=== PATIENT | male | born 1985 | race Caucasian/White ===

== ENCOUNTER 2017-04-22 14:08 | Emergency (ER) | payer MEDICAID, SELFPAY ==
[2017-04-22 14:09] VITALS: BP 133/84; PULSE 100; RESP 16; TEMP 36.6; O2SAT 99; BMI 23.5
--- NOTE | 2017-04-22 14:16 | CT_ITS ---
STUDY: CT ABDOMEN AND PELVIS WITHOUT CONTRAST REASON FOR EXAM: Male, 32 years old. Abdominal pain. RADIATION DOSAGE (If Supplied By Facility): CTDIvol = ( 6.25 ) mGy, DLP = ( 296.85 ) mGycm TECHNIQUE: Transaxial images were obtained from the dome of the diaphragm to the symphysis pubis without oral contrast, and without intravenous contrast. Sagittal and coronal images were reconstructed. Individualized dose optimization techniques were used for this CT. COMPARISON: CT of the abdomen and pelvis dated August 19, 2016. FINDINGS: The visualized lung bases are unremarkable. The visualized portions of the heart are within normal limits. Normal liver. There is non-visualization of the gallbladder, which may be secondary to either contraction or a prior cholecystectomy. Normal spleen. Normal pancreas. Normal bilateral adrenal glands. Right kidney is smaller than left kidney with multifocal parenchymal loss possibly related to previous ischemia or infection. Normal left kidney. Normal visualized stomach. There is no evidence for dilated bowel, ascites or pneumoperitoneum. Small bowel has a grossly normal appearance. Normal colon. The appendix is visualized and appears normal. Normal abdominal aorta. Normal inferior vena cava. Normal retroperitoneum. Urinary bladder is very distended. Normal visualized prostate gland. Normal abdominal wall. Normal osseous structures. CT/Abdomen/Pelvis without Cont IMPRESSION: No CT evidence of acute intra-abdominal disease. Electronically Signed: Nicolasa Espinoza MD at 15:38 EST , Service support ,
[2017-04-22] MEDS: 0.9% Normal Saline 1,000 ML 125 ML IV (14:37)
[2017-04-22] MEDS: Ondansetron 4 MG/2 ML Vial IV (14:37)
[2017-04-22 14:40] LABS: Absolute Lymphocyte Count 2.59 X10^3/ul (0.83-4.51); Absolute Neutrophil Count 4.5 X10^3/uL (2.0-7.7); Basophil# 0.01 X10^3/uL; Basophil% 0.1 % (0-1); Eosinophils% 1.3 % (0-5); Hemoglobin 15.6 g/dl (13.0-16.5); Lymphocyte # 2.59 X10^3/ul (4.0); Lymphocyte % 34.1 % (19-41); Mean Corp Hgb Conc 35.5 g/gl (32-36); Mean Corpuscular Hgb 30.8 pg (27.0-32.0); Mean Platelet Vol. 9.4 fl (6.2-12.0); Monocyte# 0.39 X10^3/uL; Monocyte% 5.1 % (0-10); Neutrophil # 4.49 X10^3/uL (2.7-7.7); Neutrophil % 59.1 % (47-70); POSITIVE COUNT NO; POSITIVE DIFFERENTIAL NO; POSITIVE MORPHOLOGY NO; Platelet Count 232 K/mm3 (150-450); RBC Distribution Width CV 12.4 % (11.6-14.6); RBC Distribution Width SD 39.3 fl (35.1-43.9); Red Blood Count 5.06 M/mm3 (4.6-6.2); White Blood Count 7.6 K/mm3 (4.4-11.0)
[2017-04-22 14:45] LABS: AST(SGOT) 24 U/L (15-37); Alanine Aminotransfer ALT/SGPT 22 U/L (12-78); Albumin, Serum 4.1 g/dL (3.2-5.0); Alkaline Phosphatase 112 U/L (45-117); Anion Gap 6 (5-15); BUN 9 mg/dL (7-18); Bilirubin, Direct 0.13 mg/dL (0.00-0.30); Calcium,Total 8.9 mg/dL (8.5-10.1); Chloride 106 mmol/L (98-107); Creatinine, Serum 0.82 mg/dL (0.70-1.30); EST Glomerular Filtration Rate 117 mL/min (>60); Est Glom Filt Rate - Afr Amer 142 mL/min (>60); Estimated Creatinine Clearance 123.15 ml/min; Globulin 3.6 g/dL (2.2-4.2); Glucose 86 mg/dL (70-110); Lipase 97 U/L (73-393); Potassium 3.7 mmol/L (3.5-5.1); Protein, Total 7.7 g/dL (6.4-8.2); Sodium Level 140 mmol/L (136-145)
--- NOTE | 2017-04-22 14:57 | ED.DCSUM_ITS ---
- ER Visit Summary Date of Service: 04/22/17 Chief Complaint: [] Right upper quadrant pain for months History of Present Illness: The patient is a 32 M [] right upper quadrant pain for months he indicates that basically he has had pain in his right upper quadrant for some time, he had a cholecystectomy mid 2016 the abdominal pain persisted was slightly different he was seen for follow-up and was found to have what he describes as a hernia involving 1 of these cutaneous port site incisions, he was seen by Dr. Hutson, he was told he would require surgery, that surgery scheduled for this Sunday he is out of his pain medicines nothing is helping his pain he came to the emergency department. He indicates he has had no other exacerbation this is identical to what he has had in the past he did not injure his body he is eating and drinking his bowel bladder habits normal no fever no cough it is just the persistence of discomfort and lack of medications Physical Examination: [] He points directly to a focal area of his right upper quadrant I really do not feel a discrete hernia here but indicates he feels he has a small hernia involving 1 of his port sites there is no guarding or rebound some mild pain to palpation in his head chest exam unremarkable the abdomen is soft again no rebound or guarding upper lower extremities unremarkable neurologically awake alert moving all 4 Test Results: [] Emergency Department Course and Treatment: [] Given all of the above labs CT pain management CBC chemistry labs unremarkable, CT abdomen negative. Discussed the case Dr. Hutson his surgeon she will see him as scheduled we agree he will be given just a few tramadol No. 4 to use as needed and I also cautioned him that his pain management will likely not include narcotics postop and he understands Treatment Plan: [] Disposition: [] Right upper quadrant pain stable home Impression: [] Right upper quadrant pain stable This note was generated with [employer] dictation software. It may contain incorrect words, spelling, and punctuation that were not noted in review of the chart prior to signing ED Disposition - Plan for ED Patient: Chief Complaint: Abd Pain Referrals: Ugo Sim DO [Primary Care Provider] -
[2017-04-22 15:50] LABS: Bacteria 0 SEEN /hpf (None Seen); Color, Urine Yellow (Yellow); Glucose, Dipstick Normal (Normal); Ketone-Dipstick Negative (Negative); Leukocyte Esterase-Dipstick Negative /ul (Negative); Mucous, Urine 0 SEEN /hpf (<or=2+); Nitrite-Dipstick Negative (Negative); Occult Blood-Urine Negative /ul (Negative); Protein-Dipstick Negative (Negative); Red Blood Cells-Urine 0 SEEN /hpf (0-5); Specific Gravity, Urine 1.005 (1.002-1.030); Squamous Epithelial Cells - UA 0 SEEN /hpf (0-5); Urine Bilirubin Dipstick Negative (Negative); Urine Clarity Clear (Clear); Urine Urobilinogen Normal (Normal); Urine pH 6.5 (5.0 - 8.0); White Blood Cells 0 SEEN /hpf (0-5)
--- NOTE | 2017-04-22 16:54 | ED.DEP ---
ED Disposition - Plan for ED Patient: Chief Complaint: Abd Pain Instructions: ED Abdominal Pain Unkn Cause Prescriptions: TraMADol [Ultram] 50 mg PO QHS #5 tab Referrals: Ugo Sim DO [Primary Care Provider] -
[2017-04-22 17:15] VITALS: BP 104/62; PULSE 83; RESP 16; O2SAT 98
== END 2017-04-22 17:16 | disposition home or self-care (01) ==
LOC: ED 14:28
PROVIDERS: Emergency Provider Emergency Medicine; Family Provider Student in an Organized Health Care Education/Training Program; PCP Student in an Organized Health Care Education/Training Program
DX: R10.11 Right upper quadrant pain (principal); Z90.49 Acquired absence of other specified parts of digestive tract
CPT/HCPCS: 74176; 80048; 80076; 81001; 83690; 85025; 96361; 96374; 96375; 99283; J7050; A4216; J2405

== ENCOUNTER 2017-05-31 21:11 | Emergency (ER) | payer MEDICAID, SELFPAY ==
[2017-05-31 21:12] VITALS: BP 140/90; PULSE 97; RESP 20; TEMP 36.5; O2SAT 100; BMI 26.3
[2017-05-31 21:24] VITALS: O2SAT 99
--- NOTE | 2017-05-31 21:33 | EKG12_ITS ---
Test Reason : SOB Blood Pressure : / mmHG Vent. Rate : 086 BPM Atrial Rate : 086 BPM P-R Int : 188 ms QRS Dur : 098 ms QT Int : 350 ms P-R-T Axes : 064 072 056 degrees QTc Int : 418 ms Normal sinus rhythm Normal ECG Confirmed by KANU HILLMAN ([id number]), social media editor ISAMAR PIERRE ([id number]) on 06/04/2017 1:43:24 PM Referred By: SAMANTHA/MIKAL Confirmed By:KANU HILLMAN
--- NOTE | 2017-05-31 21:35 | RAD_ITS ---
STUDY: X-RAY CHEST REASON FOR EXAM: Male, 32 years old. Chest pain. TECHNIQUE: Single AP portable view of the chest. COMPARISON: 28 September 2016 FINDINGS: The lungs are clear and expanded. There is no demonstrated pleural abnormality. Normal size heart. Normal mediastinum and christa. Normal visualized pulmonary arteries. Normal visualized aortic arch and descending thoracic aorta. Normal visualized thoracic spine. Normal visualized ribs, clavicles, and shoulders. There is no demonstrated abnormality of the visualized soft tissue structures of the upper abdomen. RAD/Chest 1 View (Portable) IMPRESSION: No evidence of acute cardiopulmonary process. Electronically Signed: Toney Mcdaniel DO at 22:01 EST , Service support ,
[2017-05-31 21:45] VITALS: PULSE 87; RESP 11
[2017-05-31] MEDS: Ipratropium/Albuterol Sulfate 3 ML AMPUL.NEB INHALATION (21:45)
[2017-05-31] MEDS: Aspirin 81 MG TAB.CHEW 324 MG PO (21:53)
[2017-05-31] MEDS: 0.9% Normal Saline 1,000 ML 150 ML IV (21:57)
[2017-05-31] MEDS: Ondansetron 4 MG/2 ML Vial IV (21:58)
[2017-05-31 22:01] VITALS: BP 132/87; PULSE 91; RESP 17; O2SAT 98
[2017-05-31 22:28] LABS: Absolute Lymphocyte Count 3.15 X10^3/ul (0.83-4.51); Absolute Neutrophil Count 3.9 X10^3/uL (2.0-7.7); Basophil# 0.02 X10^3/uL; Basophil% 0.3 % (0-1); Eosinophil# 0.15 X10^3/uL; Hemoglobin 14.4 g/dl (13.0-16.5); Lymphocyte # 3.15 X10^3/ul (4.0); Mean Corp Hgb Conc 34.3 g/gl (32-36); Mean Corpuscular Hgb 30.1 pg (27.0-32.0); Mean Corpuscular Volume 87.7 fL (80-94); Mean Platelet Vol. 9.4 fl (6.2-12.0); Monocyte# 0.48 X10^3/uL; Monocyte% 6.2 % (0-10); Neutrophil # 3.88 X10^3/uL (2.7-7.7); Neutrophil % 50.4 % (47-70); POSITIVE COUNT NO; POSITIVE DIFFERENTIAL NO; POSITIVE MORPHOLOGY NO; Platelet Count 238 K/mm3 (150-450); RBC Distribution Width CV 12.4 % (11.6-14.6); RBC Distribution Width SD 39.5 fl (35.1-43.9); Red Blood Count 4.79 M/mm3 (4.6-6.2); White Blood Count 7.7 K/mm3 (4.4-11.0)
[2017-05-31 22:36] LABS: BUN 12 mg/dL (7-18); Creatinine, Serum 0.82 mg/dL (0.70-1.30); Estimated Creatinine Clearance 131.72 ml/min; Glucose 96 mg/dL (74-106)
[2017-05-31 22:37] LABS: Anion Gap 6 (5-15); BUN/Creat Ratio 14.6 RATIO (10-20); Calcium,Total 8.7 mg/dL (8.5-10.1); Chloride 105 mmol/L (98-107); D-Dimer Quantitative (DVT/PE) 0.29 FEU/ug/m (0.27-0.49); EST Glomerular Filtration Rate 116 mL/min (>60); Est Glom Filt Rate - Afr Amer 141 mL/min (>60); Potassium 3.3 mmol/L (3.5-5.1); Sodium Level 140 mmol/L (136-145)
--- NOTE | 2017-05-31 23:06 | ED.VISSUMM ---
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 his friend who is with him is concerned he may have turned suddenly and suffered some type of chest trauma the patient is not sure if that is what caused the symptoms, he does smoke he denies any other risk factors such as high cholesterol diabetes family history, the pain is a sharp stabbing pain that comes and goes he has no history of COPD asthma DVT or PE he points to the mid sternum as the focus of his pain No past history and is on no meds Physical Examination: [] His vital signs are normal his pulse ox 100% on room air speaking full sentences his HEENT neck exam are normal his lungs are clear heart tones are normal the chest wall is not obviously tender he has full range of motion of his upper extremities symmetric pulses lungs are clear heart tones are normal again abdomen soft nontender upper lower extreme is normal without cyanosis clubbing or edema Test Results: [] Emergency Department Course and Treatment: [] Went comprehensive evaluation his EKG shows a sinus rhythm his labs including CBC chemistry d-dimer troponin chest x-ray are all unremarkable, on reevaluation is feeling much better I explained to him the exact etiology is unclear he is comfortable discharge home he understands these outpatient follow-up and will follow up with physician tomorrow return for change in symptoms Treatment Plan: [] Disposition: [] Home stable Impression: [] Stabbing chest pain improved This note was generated with [employer] dictation software. It may contain incorrect words, spelling, and punctuation that were not noted in review of the chart prior to signing ED Disposition - Plan for ED Patient: Chief Complaint: Shortness of Breath Referrals: Ugo Sim DO [Primary Care Provider] -
--- NOTE | 2017-05-31 23:09 | ED.DEP ---
ED Disposition - Plan for ED Patient: Chief Complaint: Shortness of Breath Instructions: ED Chest Pain Atypical Unkn Cause Prescriptions: Naproxen [Naprosyn] 500 mg PO BID PRN #20 tab Referrals: Ugo Sim DO [Primary Care Provider] -
[2017-05-31 23:21] VITALS: BP 133/93; PULSE 92; RESP 14; O2SAT 98
--- NOTE | 2017-05-31 23:21 | ED.RN ---
THIS RN EDUCATED PT ON WRITTEN AND VERBAL DISCHARGE INSTRUCTIONS AND HOME GOING PRESCRIPTIONS. PT VERBALIZES UNDERSTANDING. PT EDUCATED NOT TO DRIVE AFTER HAVING NARCOTIC MEDICATION, AND TO RETURN TO THE ED FOR ANY NEW OR WORSENED SX. PT IV D/C AND COVERED WITH 2X2 GAUZE DRESSING. MINIMAL BLEEDING NOTED. PT AMBULATORY HOME WITH FRIEND.
== END 2017-05-31 23:26 | disposition home or self-care (01) ==
LOC: ED 21:38
PROVIDERS: Emergency Provider Emergency Medicine; Family Provider Student in an Organized Health Care Education/Training Program; PCP Student in an Organized Health Care Education/Training Program
DX: R07.9 Chest pain, unspecified (principal); F17.200 Nicotine dependence, unspecified, uncomplicated
CPT/HCPCS: 71045; 80048; 84484; 85025; 85379; 93005; 94640; 96361; 96374; 96375; 99285; J7030; A4216; J2405

== ENCOUNTER 2017-08-09 22:57 | Emergency (ER) | payer SELFPAY ==
[2017-08-09 22:58] VITALS: BP 176/110; PULSE 99; RESP 20; TEMP 36.4; O2SAT 100; BMI 25.8
[2017-08-09] MEDS: Morphine 4 MG/ML Syringe IV (23:40)
[2017-08-09] MEDS: 0.9% Normal Saline 1,000 ML 125 ML IV (23:40)
[2017-08-09] MEDS: Ondansetron 4 MG/2 ML Vial IV (23:40)
[2017-08-09 23:47] LABS: Absolute Lymphocyte Count 3.14 X10^3/ul (0.83-4.51); Absolute Neutrophil Count 3.8 X10^3/uL (2.0-7.7); Basophil# 0.03 X10^3/uL; Basophil% 0.4 % (0-1); Eosinophil# 0.15 X10^3/uL; Hematocrit 41.1 % (40-54); Hemoglobin 14.8 g/dl (13.0-16.5); Lymphocyte # 3.14 X10^3/ul (4.0); Lymphocyte % 41.1 % (19-41); Mean Corpuscular Hgb 31.3 pg (27.0-32.0); Mean Corpuscular Volume 86.9 fL (80-94); Mean Platelet Vol. 9.7 fl (6.2-12.0); Monocyte# 0.49 X10^3/uL; Monocyte% 6.4 % (0-10); Neutrophil # 3.81 X10^3/uL (2.7-7.7); Neutrophil % 49.8 % (47-70); Platelet Count 271 K/mm3 (150-450); RBC Distribution Width CV 12.6 % (11.6-14.6); RBC Distribution Width SD 39.1 fl (35.1-43.9); Red Blood Count 4.73 M/mm3 (4.6-6.2); White Blood Count 7.6 K/mm3 (4.4-11.0)
[2017-08-09 23:50] LABS: POSITIVE COUNT NO; POSITIVE DIFFERENTIAL NO; POSITIVE MORPHOLOGY NO
[2017-08-10] LABS: Anion Gap 9 (5-15); BUN 18 mg/dL (7-18); BUN/Creat Ratio 18.8 RATIO (10-20); Calcium,Total 8.8 mg/dL (8.5-10.1); Chloride 104 mmol/L (98-107); Creatinine, Serum 0.96 mg/dL (0.70-1.30); EST Glomerular Filtration Rate 98 mL/min (>60); Est Glom Filt Rate - Afr Amer 119 mL/min (>60); Estimated Creatinine Clearance 112.51 ml/min; Glucose 104 mg/dL (74-106); Potassium 4.1 mmol/L (3.5-5.1); Sodium Level 142 mmol/L (136-145)
[2017-08-10 01:03] VITALS: RESP 18
--- NOTE | 2017-08-10 01:59 | ED.DCSUM_ITS ---
- ER Visit Summary Date of Service: 08/10/17 Chief Complaint: [Abdominal pain History of Present Illness: The patient is a 32 M [presents to the emergency department with abdominal pain for the last 3 days. Patient states initially the pain was more mild and mid abdomen just above his incision from prior hernia repair about 3 months ago. Patient states that while at work today he moved something the wrong way and is had increased discomfort since that time. Patient denies any fever. Patient denies any nausea or vomiting. Patient denies any diarrhea. Currently patient rates his pain a 6 or 7 out of 10. Patient denies urinary symptoms.] Physical Examination: [HEENT-PERRLA, EOMI. Cranial nerves II through XII grossly intact. TMs clear. Mucous membranes moist. No adenopathy. Cardiovascular-regular rate and rhythm without murmur or ectopy Lungs-clear to auscultation, chest wall stable without crepitus or subcu emphysema Abdomen-normoactive bowel sounds, soft. Patient has a 2.5 cm incision above his umbilicus that is tender to palpation and patient also some tenderness just superior to the incision. No masses palpated. There is no rebound, rigidity, or perineal signs. Extremities-intact ?4, normal range of motion, normal pulses, atraumatic] Test Results: [CBC with differential was normal. Chemistries were normal. Lactate was normal at 1.0. CT scan of the abdomen pelvis with p.o. contrast showed nothing acute only some constipation. No bowel obstruction and no hernias noted] Emergency Department Course and Treatment: [Patient initially was medicated with morphine and Zofran and he felt improved after treatment. Patient was resting comfortably on repeat examination.] Treatment Plan: [Patient advised to follow-up with his surgeon Dr. Forbes weighing within the next 3-5 days.] I suspect patient may have had an abdominal wall strain. Disposition: [Discharged home in stable condition] Impression: [Abdominal pain-etiology uncertain] This note was generated with [employer] dictation software. It may contain incorrect words, spelling, and punctuation that were not noted in review of the chart prior to signing ED Disposition - Plan for ED Patient: Chief Complaint: Abd Pain Referrals: Ugo Sim DO [Primary Care Provider] -
--- NOTE | 2017-08-10 01:59 | ED.DEP ---
ED Disposition - Plan for ED Patient: Chief Complaint: Abd Pain Instructions: ED Abdominal Pain Unkn Cause Referrals: Ugo Sim DO [Primary Care Provider] - Leidy Hutson MD [STAFF PHYSICIAN] - 3-5 Days
[2017-08-10 02:04] VITALS: BP 120/73; PULSE 76; RESP 16; O2SAT 97
--- NOTE | 2017-08-10 23:11 | CT_ITS ---
STUDY: CT ABDOMEN AND PELVIS WITHOUT CONTRAST REASON FOR EXAM: Male, 32 years old. Abdominal pain RADIATION DOSAGE (If Supplied By Facility): CTDIvol = ( 6.67 ) mGy, DLP = ( 343.23 ) mGycm TECHNIQUE: Transaxial images were obtained from the dome of the diaphragm to the symphysis pubis with oral contrast, and without intravenous contrast. Sagittal and coronal images were reconstructed. Individualized dose optimization techniques were used for this CT. COMPARISON: None. FINDINGS: Mild bibasilar dependent atelectasis versus scar formation. The visualized portions of the heart are within normal limits. Normal liver. Gallbladder is surgically absent. No biliary duct dilatation. Normal spleen. Normal pancreas. Normal bilateral adrenal glands. Normal right kidney. Normal left kidney. Ureterocele noted on the right without hydroureter. Normal left ureter. Normal visualized stomach. Normal small intestine. Small amount of stool throughout the colon. No colonic wall thickening The appendix is visualized and appears normal. Normal abdominal aorta. Normal inferior vena cava. Normal retroperitoneum. Normal urinary bladder. No free pelvic fluid. Normal abdominal wall. Normal osseous structures. CT/Abdomen/Pel W ORAL Cont Only IMPRESSION: 1. No evidence of an acute intra-abdominal abnormality 2. Right sided ureterocele without evidence of hydroureter. 3. Mild constipation. Electronically Signed: Fred Hay MD at 1:43 EDT Tel , Service support ,
== END 2017-08-10 02:05 | disposition home or self-care (01) ==
LOC: ED 23:39
PROVIDERS: Emergency Provider Emergency Medicine; Family Provider Student in an Organized Health Care Education/Training Program; PCP Student in an Organized Health Care Education/Training Program
DX: R10.9 Unspecified abdominal pain (principal); K59.00 Constipation, unspecified; Z72.0 Tobacco use
CPT/HCPCS: 74176; 80048; 83605; 85025; 96361; 96374; 96375; 99283; J7030; J2405

== ENCOUNTER 2017-09-02 16:25 | Emergency (ER) | payer SELFPAY ==
--- NOTE | 2017-09-02 16:25 | DT_ITS ---
This patient was seen during an EMR downtime August 27, 2017 - September 03, 2017. This patient may have a combination of paper and electronic documentation or all paper documentation. All documentation is viewable within the e-chart portion of [employer] for each patient visit.
--- NOTE | 2017-09-02 18:00 | CT_ITS ---
STUDY: CT ABDOMEN AND PELVIS WITHOUT CONTRAST REASON FOR EXAM: Male, 32 years old. Right groin pain RADIATION DOSAGE (If Supplied By Facility): CTDIvol = ( 6.72 ) mGy, DLP = ( 325.76 ) mGycm TECHNIQUE: Transaxial images were obtained from the dome of the diaphragm to the symphysis pubis without oral contrast, and without intravenous contrast. Sagittal and coronal images were reconstructed. Individualized dose optimization techniques were used for this CT. COMPARISON: None. FINDINGS: The visualized lung bases are unremarkable. The visualized portions of the heart are within normal limits. Normal liver. There is non-visualization of the gallbladder, which may be secondary to either contraction or a prior cholecystectomy. Normal spleen. Normal pancreas. Normal bilateral adrenal glands. Normal right kidney. Normal left kidney. Normal visualized stomach. Normal small intestine. Normal colon. The appendix is visualized and appears normal. Normal abdominal aorta. Normal inferior vena cava. Normal retroperitoneum. There appears to be a 2.2 cm diverticulum of the right posterior aspect of the bladder. The prostate, seminal vesicles, and seminal vesicle angles appear normal. Normal abdominal wall. Normal osseous structures. There appears to be a right hydrocele. CT/Abdomen/Pelvis without Cont IMPRESSION: 1. There is no evidence of nephro or ureterolithiasis, hydronephrosis, or hydroureter. 2. There appears to be a right hydrocele. 3. There is a 2.2 cm diverticulum of the right posterior aspect of the bladder. 4. The gallbladder is not visualized. 5. If clinically indicated, ultrasound of the scrotum may be helpful for further evaluation. Electronically Signed: Maurice Fenton MD at 18:43 EDT , Service support ,
[2017-09-04 08:06] LABS: BUN 11 mg/dL (7-18); BUN/Creat Ratio 14.1 RATIO (10-20); Calcium,Total 8.6 mg/dL (8.5-10.1); Creatinine, Serum 0.78 mg/dL (0.70-1.30); EST Glomerular Filtration Rate 124 mL/min (>60); Est Glom Filt Rate - Afr Amer 150 mL/min (>60); Glucose 89 mg/dL (74-106); Sodium Level 140 mmol/L (136-145)
[2017-09-04 08:07] LABS: Anion Gap 7 (5-15); Chloride 107 mmol/L (98-107); Potassium 3.5 mmol/L (3.5-5.1)
[2017-09-04 10:53] LABS: White Blood Count 6.1 K/mm3 (4.4-11.0)
[2017-09-04 10:54] LABS: Absolute Lymphocyte Count 2.54 X10^3/ul (0.83-4.51); Absolute Neutrophil Count 3.2 X10^3/uL (2.0-7.7); Basophil# 0.01 X10^3/uL; Basophil% 0.2 % (0-1); Eosinophil# 0.05 X10^3/uL; Eosinophils% 0.8 % (0-5); Hematocrit 40.5 % (40-54); Hemoglobin 14.3 g/dl (13.0-16.5); Lymphocyte # 2.54 X10^3/ul (4.0); Lymphocyte % 41.4 % (19-41); Mean Corp Hgb Conc 35.3 g/gl (32-36); Mean Corpuscular Hgb 30.2 pg (27.0-32.0); Mean Corpuscular Volume 85.4 fL (80-94); Mean Platelet Vol. 9.2 fl (6.2-12.0); Monocyte# 0.31 X10^3/uL; Neutrophil # 3.23 X10^3/uL (2.7-7.7); Neutrophil % 52.6 % (47-70); POSITIVE COUNT NO; POSITIVE DIFFERENTIAL NO; POSITIVE MORPHOLOGY NO; Platelet Count 223 K/mm3 (150-450); RBC Distribution Width CV 12.5 % (11.6-14.6); RBC Distribution Width SD 39.1 fl (35.1-43.9); Red Blood Count 4.74 M/mm3 (4.6-6.2)
[2017-09-04 11:54] LABS: Bacteria 0 SEEN /hpf (None Seen); Mucous, Urine 0 SEEN /hpf (<or=2+); Red Blood Cells-Urine 0 SEEN /hpf (0-5)
[2017-09-04 12:31] LABS: Color, Urine Yellow (Yellow); Glucose, Dipstick NEGATIVE (Normal); Ketone-Dipstick 5 mg/dl (Negative); Leukocyte Esterase-Dipstick 25 /ul (Negative); Nitrite-Dipstick Negative (Negative); Occult Blood-Urine Negative /ul (Negative); Protein-Dipstick Negative (Negative); Specific Gravity, Urine 1.015 (1.002-1.030); Squamous Epithelial Cells - UA 0-5 SEEN /hpf (0-5); Urine Bilirubin Dipstick Negative (Negative); Urine Clarity Clear (Clear); Urine Urobilinogen Normal (Normal); White Blood Cells 0-5 SEEN /hpf (0-5)
== END 2017-09-02 20:05 | disposition home or self-care (01) ==
LOC: ED 09-03 08:27
PROVIDERS: Emergency Provider Emergency Medicine; Family Provider Student in an Organized Health Care Education/Training Program; PCP Student in an Organized Health Care Education/Training Program
DX: R10.31 Right lower quadrant pain (principal); K52.9 Noninfective gastroenteritis and colitis, unspecified; N43.3 Hydrocele, unspecified; N32.3 Diverticulum of bladder; Z90.49 Acquired absence of other specified parts of digestive tract; F17.200 Nicotine dependence, unspecified, uncomplicated
CPT/HCPCS: 74176; 80048; 81001; 85025; 96361; 96374; 96375; 99284; J7030; P9612; A4216; J2405

== ENCOUNTER 2017-12-10 21:05 | Emergency (ER) | payer OTHER, SELFPAY ==
[2017-12-10 21:07] VITALS: BP 118/74; PULSE 92; RESP 18; TEMP 36.9; O2SAT 97; BMI 23.3
--- NOTE | 2017-12-10 21:41 | RAD_ITS ---
STUDY: X-RAY CHEST REASON FOR EXAM: Male, 32 years old. Cough. TECHNIQUE: PA and lateral views of the chest. COMPARISON: May 31, 2017 FINDINGS: The lungs remain hyperinflated. There is no new focal consolidation. Normal size heart. Normal mediastinum and christa. Normal visualized pulmonary arteries. Normal visualized aortic arch and descending thoracic aorta. Normal visualized thoracic spine. Normal visualized ribs, clavicles, and shoulders. There is no demonstrated abnormality of the visualized soft tissue structures of the upper abdomen. RAD/Chest PA and Lateral IMPRESSION: Hyperinflated lungs may reflect underlying COPD. Electronically Signed: Danna Beasley MD at 22:50 EDT Tel , Service support ,
[2017-12-10] MEDS: Naproxen 500 MG Tablet PO (22:11)
[2017-12-10] MEDS: Ondansetron ODT 4 MG Tablet PO (22:12)
--- NOTE | 2017-12-10 23:06 | ED.VISSUMM ---
- ER Visit Summary Date of Service: 12/10/17 Chief Complaint: Cough History of Present Illness: The patient is a [address] Sim. He reports he has a cough began 2 days ago. Is productive yellow sputum without blood. He has had subjective fever, chills, and cold sweats. He got sinus congestion. He denies a sore throat. He reports that he is mildly short of breath. He denies wheezing. He reports that he does kind of have a headache. Physical Examination: Vitals: Stable. Afebrile. General: Well-nourished and well-developed. Head: Normocephalic atraumatic. HEENT: Posterior oral pharyngeal erythema. No tonsillar exudate or enlargement. Neck: Supple, no lymphadenopathy. No JVD. Nontender. Cardiovascular: Regular rate and rhythm. No murmurs. Respiratory: No respiratory distress. Clear to auscultation bilaterally. Abdominal: Soft, nontender, nondistended, normal bowel sounds. No guarding, rebound, or peritoneal signs. Back: Nontender. Extremities: Nontender, no edema. Skin: Normal color, no rash. Neurologic: Alert and oriented ?3. Cranial nerves II through XII are intact. Normal strength and sensation. Psych: Normal affect. Test Results: Chest x-ray shows chronic changes. Emergency Department Course and Treatment: Patient was treated Zofran and naproxen. He is resting comfortably. Treatment Plan: Patient be discharged with symptomatic care. Push fluids. Alternate Tylenol and ibuprofen. Follow-up Dr. Sim in 1 week if not improving. Return to the emergency department for any worsening symptoms. Disposition: To home in improved and stable condition. Impression: 1. URI. This note was generated with [email or web address] dictation software. It may contain incorrect words, spelling, and punctuation that were not noted in review of the chart prior to signing ED Disposition - Plan for ED Patient: Disposition: Home or Assisted Living Chief Complaint: Cold Sx Instructions: ED Upper Resp Infec No Abx Tx Referrals: Ugo Sim DO [Primary Care Provider] - 1 Week if not improving
[2017-12-10 23:16] VITALS: BP 110/60; PULSE 90; RESP 18
== END 2017-12-10 23:17 | disposition home or self-care (01) ==
PROVIDERS: Emergency Provider Emergency Medicine; Family Provider Student in an Organized Health Care Education/Training Program; PCP Student in an Organized Health Care Education/Training Program
DX: J06.9 Acute upper respiratory infection, unspecified (principal); R11.0 Nausea; R06.02 Shortness of breath; Z72.0 Tobacco use; Z90.49 Acquired absence of other specified parts of digestive tract
CPT/HCPCS: 71046; 99283

== ENCOUNTER 2018-04-03 06:57 | Emergency (ER) | payer OTHER, SELFPAY ==
[2018-04-03 06:59] VITALS: BP 137/82; PULSE 117; RESP 22; TEMP 36.4; O2SAT 98; BMI 22.4
--- NOTE | 2018-04-03 07:23 | CT_ITS ---
STUDY: CT ABDOMEN AND PELVIS WITH CONTRAST REASON FOR EXAM: Male, 33 years old. Mid abdominal pain. RADIATION DOSAGE (If Supplied By Facility): CTDIvol = ( 7.47 ) mGy, DLP = ( 432.24 ) mGycm TECHNIQUE: Transaxial images were obtained from the dome of the diaphragm to the symphysis pubis with oral contrast. 100 ml of Isovue 300 contrast was administered. Sagittal and coronal images were reconstructed. Individualized dose optimization techniques were used for this CT. COMPARISON: Comparison is made with prior study dated September 02, 2017. FINDINGS: The visualized lung bases are unremarkable. The visualized portions of the heart are within normal limits. Minimally dilated intrahepatic biliary ducts. The patient is status post cholecystectomy. Normal spleen. Normal pancreas. Normal bilateral adrenal glands. Normal right kidney. Normal left kidney. Normal visualized stomach. Normal small intestine. Fecal material is seen in the right; although I suspect mucosal fold thickening of the descending colon up to the hepatic flexure. The appendix is visualized and appears normal. Normal abdominal aorta. Normal inferior vena cava. Normal retroperitoneum. Once again, there is evidence of a 2.5 cm x 1.5 cm diverticulum along the posterior lateral aspect of the urinary bladder. Normal abdominal wall. Normal osseous structures. CT/Abdomen/Pelvis WITH Contrast IMPRESSION: Mildly dilated intrahepatic biliary ducts. The patient is status post cholecystectomy. Small diverticulum along the posterior medial lateral aspect of the bladder. Findings suggestive of haustral thickening involving the right hemicolon. Electronically Signed: Prashanth Pat MD at 9:18 EST Tel [phone], Service support ,
[2018-04-03 07:48] LABS: Absolute Lymphocyte Count 2.52 X10^3/ul (0.83-4.51); Absolute Neutrophil Count 4.6 X10^3/uL (2.0-7.7); Basophil# 0.02 X10^3/uL; Basophil% 0.3 % (0-1); Eosinophil# 0.15 X10^3/uL; Eosinophils% 1.9 % (0-5); Hematocrit 48.4 % (40-54); Hemoglobin 16.5 g/dl (13.0-16.5); Lymphocyte # 2.52 X10^3/ul (4.0); Lymphocyte % 32.5 % (19-41); Mean Corp Hgb Conc 34.1 g/gl (32-36); Mean Corpuscular Hgb 30.1 pg (27.0-32.0); Mean Corpuscular Volume 88.3 fL (80-94); Mean Platelet Vol. 10.1 fl (6.2-12.0); Monocyte# 0.51 X10^3/uL; Monocyte% 6.6 % (0-10); Neutrophil # 4.55 X10^3/uL (2.7-7.7); Neutrophil % 58.6 % (47-70); Platelet Count 257 K/mm3 (150-450); RBC Distribution Width CV 12.9 % (11.6-14.6); RBC Distribution Width SD 41.9 fl (35.1-43.9); Red Blood Count 5.48 M/mm3 (4.6-6.2); White Blood Count 7.8 K/mm3 (4.4-11.0)
[2018-04-03 07:50] LABS: POSITIVE COUNT NO; POSITIVE DIFFERENTIAL NO; POSITIVE MORPHOLOGY NO
[2018-04-03 07:53] LABS: Anion Gap 8 (5-15); BUN 29 mg/dL (7-18); BUN/Creat Ratio 30.6 RATIO (10-20); Calcium,Total 9.4 mg/dL (8.5-10.1); Chloride 105 mmol/L (98-107); Creatinine, Serum 0.95 mg/dL (0.70-1.30); EST Glomerular Filtration Rate 99 mL/min (>60); Est Glom Filt Rate - Afr Amer 119 mL/min (>60); Estimated Creatinine Clearance 110.12 ml/min; Glucose 104 mg/dL (74-106); Potassium 3.9 mmol/L (3.5-5.1); Sodium Level 138 mmol/L (136-145)
[2018-04-03] MEDS: 0.9% Normal Saline 1,000 ML 1000 ML IV (08:12)
[2018-04-03] MEDS: Morphine 4 MG/ML Syringe IV (08:12)
[2018-04-03] MEDS: Ondansetron 4 MG/2 ML Vial IV (08:13)
--- NOTE | 2018-04-03 08:42 | ED.DCSUM_ITS ---
- ER Visit Summary Date of Service: 04/03/18 Chief Complaint: Blood in stool and abdominal pain History of Present Illness: The patient is a 33 M presenting for evaluation secondary to bloody stools and abdominal pain. Patient reports that yesterday he had an episode of bloody stool. He reports that he had a bowel movements that filled the toilet with blood. Patient states that when he woke up today he had a significant amount of left lower quadrant pain. This caused him to feel nauseous and have one episode of nonbloody nonbilious emesis. Patient states that he has not had any other episodes of bloody stools since the one yesterday. He denies any presence of fevers. He denies any prior significant history of GI bleed, but does state he has a history of diverticulitis in the past. He also has prior history of cholecystectomy and hernia surgery. Nothing recent. Review of systems otherwise negative. Physical Examination: Vital signs notable for heart rate of 117. Well-nourished male pale and diaphoretic. No evidence of conjunctival pallor however. Moist mucous membranes. Heart was regular and tachycardic. Lungs sound clear. Abdomen was tender in the left lower quadrant with some voluntary guarding but no evidence of use rigidity or rebound tenderness. Rectal exam showed no evidence of gross blood and no evidence of hemorrhoids. It was nontender. Remainder of physical otherwise unremarkable. Test Results: CBC and chemistry unremarkable, CT abdomen and pelvis with p.o. and IV contrast demonstrates a bladder diverticulum which is chronic, and no evidence of diverticulitis, volvulus, obstruction, or acute pathology. Emergency Department Course and Treatment: Patient presented for evaluation secondary to abdominal pain. On initial presentation the patient was pale and diaphoretic and tachycardic. IV was established patient was given fluids morphine and Zofran. CBC and chemistry are unremarkable. Due to the patient's thin body habitus CT abdomen and pelvis with both p.o. and IV contrast were performed. This showed no evidence of infectious etiology, obstructive etiology, or any other abnormalities. Repeat evaluation of the patient at 10:00 showed the patient did continue to have significant pain. He was redosed with morphine. He was also given oral Bentyl. Repeat evaluation showed the patient to have significant improvement in a benign abdomen. At this point I believe the patient to be safe for discharge. Reviewing the patient's records, he seems to have frequent visits for nonspecific abdominal pain. I will recommend the patient to follow-up with GI. Patient will be sent home with a course of Bentyl. Disposition: Discharge Impression: 1. Left lower quadrant abdominal pain 2. Lower GI bleed, resolved This note was generated with [employer] dictation software. It may contain incorrect words, spelling, and punctuation that were not noted in review of the chart prior to signing ED Disposition - Plan for ED Patient: Disposition: Home or Assisted Living Chief Complaint: GI Bleed Diagnosis: Abdominal pain Instructions: ED Abdominal Pain Unkn Cause Prescriptions: Dicyclomine HCl [Bentyl] 20 mg PO TIDAC #20 cap Referrals: Guido Robison MD [NON-STAFF] -
[2018-04-03 09:27] VITALS: RESP 22
[2018-04-03] MEDS: HYDROcodone Bitartrate/Apap 5/325 Tablet PO (09:32)
[2018-04-03] MEDS: morphine 8 MG/ML Syringe 6 MG IV (10:47)
[2018-04-03] MEDS: Dicyclomine 10 MG Capsule 20 MG PO (10:57)
[2018-04-03 11:04] VITALS: BP 137/89; PULSE 73; RESP 18; O2SAT 98
== END 2018-04-03 11:40 | disposition home or self-care (01) ==
PROVIDERS: Emergency Provider Emergency Medicine; Family Provider Student in an Organized Health Care Education/Training Program; PCP Student in an Organized Health Care Education/Training Program
DX: R10.32 Left lower quadrant pain (principal); K92.1 Melena; R11.2 Nausea with vomiting, unspecified; N32.3 Diverticulum of bladder; R00.0 Tachycardia, unspecified; Z72.0 Tobacco use; Z87.19 Personal history of other diseases of the digestive system; Z90.49 Acquired absence of other specified parts of digestive tract
CPT/HCPCS: 74177; 80048; 85025; 86850; 86900; 96361; 96374; 96375; 96376; 99284; J7030; Q9967; A4216; J2405

== ENCOUNTER 2018-07-06 21:58 | Emergency (ER) | payer OTHER, SELFPAY ==
[2018-07-06 21:59] VITALS: BP 134/85; PULSE 122; RESP 16; TEMP 36.2; O2SAT 100; BMI 25.0
--- NOTE | 2018-07-06 22:10 | RAD_ITS ---
STUDY: X-RAY - RIGHT FOOT CLINICAL: Male, 33 years old. Injured right foot TECHNIQUE: 3 view(s) of the foot. COMPARISON: None. FINDINGS: Normal talus, calcaneus, and tarsal bones. Normal visualized subtalar, talonavicular, calcaneocuboid, tarsal and tarsometatarsal articulations. Normal metatarsi. Normal metatarsophalangeal joint of the great toe. Normal tibial and fibular sesamoid bones. Normal interphalangeal joint of the great toe. Normal phalanges of the great toe. Normal second through fifth metatarsophalangeal joints. Normal interphalangeal joints and phalanges of the lesser toes. The soft tissue structures are unremarkable. RAD/Foot min 3 Views IMPRESSION: Normal x-ray examination of the foot. Electronically Signed: Sherwin Castellanos MD at 23:14 EDT , Service support ,
[2018-07-06 22:11] VITALS: RESP 16
--- NOTE | 2018-07-06 22:12 | ED.DCSUM_ITS ---
- ER Visit Summary Date of Service: 07/06/18 Chief Complaint: Right great toe pain History of Present Illness: The patient is a 33 M who presents with injury to his right great toe that occurred this morning. Patient states he accidentally kicked his dog's bone while walking. Patient states the pain is sharp and throbbing. Patient states the pain is worse with weightbearing. Patient denies any paresthesias or weakness. Patient denies any other injuries. Physical Examination: Vital signs are stable. Patient is afebrile. Patient is in no acute distress. Musculoskeletal exam reveals tenderness over the right great toe and distal first metatarsal. There is minimal edema. There is no ecchymosis. There is no deformity noted. Range of motion was limited secondary to pain. Sensation was intact to light touch in all digits. Capillary refill is less than 2 seconds in all digits. There is good pedal pulse noted. Test Results: X-rays of the right foot were obtained. There is no acute fracture. This was interpreted by the radiologist and reviewed by myself. Emergency Department Course and Treatment: Patient was given a postop shoe. Patient was instructed to ice and elevate the right foot. Patient was instructed to take Tylenol or ibuprofen as needed for pain. Patient was instructed to follow-up with his primary care physician in 7-10 days. Patient understood and was agreeable with the plan. All questions were answered. Disposition: Discharge home Impression: Acute contusion right great toe This note was generated with [employer] dictation software. It may contain incorrect words, spelling, and punctuation that were not noted in review of the chart prior to signing ED Disposition - Plan for ED Patient: Disposition: Home or Assisted Living Diagnosis: Contusion of right great toe without damage to nail, initial encounter Instructions: ED Contusion Foot Referrals: Ugo Sim DO [Primary Care Provider] - 10-14 Days if not better
[2018-07-06 23:52] VITALS: RESP 16
== END 2018-07-06 23:53 | disposition home or self-care (01) ==
PROVIDERS: Emergency Provider Emergency Medicine; Family Provider Student in an Organized Health Care Education/Training Program; PCP Student in an Organized Health Care Education/Training Program
DX: S90.111A Contusion of right great toe without damage to nail, initial encounter (principal); W22.8XXA Striking against or struck by other objects, initial encounter; Y93.9 Activity, unspecified; Y92.9 Unspecified place or not applicable; Y99.9 Unspecified external cause status; Z72.0 Tobacco use
CPT/HCPCS: 73630; 99282

== ENCOUNTER 2018-12-05 19:22 | Emergency (ER) | payer SELFPAY ==
[2018-12-05 19:23] VITALS: BP 113/72; PULSE 90; RESP 18; TEMP 36.7; O2SAT 95; BMI 22.6
--- NOTE | 2018-12-05 19:51 | EKG12_ITS ---
Test Reason : DYSRHYTHMIA Blood Pressure : / mmHG Vent. Rate : 075 BPM Atrial Rate : 075 BPM P-R Int : 190 ms QRS Dur : 100 ms QT Int : 350 ms P-R-T Axes : 073 076 069 degrees QTc Int : 390 ms Normal sinus rhythm Normal ECG Confirmed by KEITH DUENAS, MORGAN ([id number]), assignment editor ISAMAR PIERRE ([id number]) on 12/09/2018 3:40:23 PM Referred By: NIECY Confirmed By:MARCELL PARKER MD
--- NOTE | 2018-12-05 19:51 | RAD_ITS ---
STUDY: X-RAY CHEST REASON FOR EXAM: Male, 33 years old. Chest pain TECHNIQUE: AP COMPARISON: December 10, 2017 FINDINGS: Lungs are mildly hyperinflated but clear. There is no demonstrated pleural abnormality. Normal size heart. Normal mediastinum and christa. Normal visualized pulmonary arteries. Normal visualized aortic arch and descending thoracic aorta. Normal visualized thoracic spine. Normal visualized ribs, clavicles, and shoulders. There is no demonstrated abnormality of the visualized soft tissue structures of the upper abdomen. No significant change since prior exam RAD/Chest 1 View (Portable) IMPRESSION: Mild hyperinflation. No acute cardiopulmonary pathology Electronically Signed: Melvin Slaughter MD at 20:27 EDT , Service support ,
--- NOTE | 2018-12-05 19:52 | ED.DCSUM_ITS ---
- ER Visit Summary Date of Service: 12/05/18 Chief Complaint: Chest and right arm pain History of Present Illness: The patient is a 33 M who presents with chest and right arm pain that began approximately 2 hours prior to arrival. Patient states she was sitting and watching TV when the pain began. Patient describes the pain is sharp. Patient states pain is over the right upper chest and right arm. Patient states nothing makes it better or worse. Patient denies any shortness of breath or cough. Patient denies any diaphoresis. Patient denies any palpitations. Patient states he has a paternal grandmother who had coronary artery disease at a young age. Patient is a smoker. Physical Examination: Vital signs are stable. Patient is afebrile. Patient is in no acute distress. Oral mucosa is pink and moist. Neck is supple. Trachea is midline. There is no JVD noted. Heart was regular rate and rhythm. Lungs are clear and equal bilaterally. There is tenderness to palpation over the right upper chest wall. There is no bony crepitance or step-off. Abdomen is soft. Bowel sounds are normal. There is no tenderness. There is no rebound or guarding noted. Cranial nerves II through XII are intact. There is no focal motor or sensory deficit noted. Test Results: EKG shows sinus rhythm with a rate of 75. There are no acute ST or T wave changes. Portable chest x-ray was obtained and does not show any acute cardiopulmonary process. CBC, basic metabolic profile, and troponin were obtained and were normal. Emergency Department Course and Treatment: Patient was given aspirin. Patient was given 1 sublingual nitroglycerin. Patient states his pain is 2 on a scale 0-10 after this. Patient has a HEART score of 2. Patient was advised that this is low risk for acute cardiac event. Patient was advised of his laboratory, x- ray, and EKG findings. Patient was instructed to take Tylenol or ibuprofen as needed for pain. Patient was instructed to follow-up with his primary care physician in 5 to 7 days. Patient understood and was agreeable with the plan. All questions were answered. Disposition: Discharge home Impression: Chest pain This note was generated with [employer] dictation software. It may contain incorrect words, spelling, and punctuation that were not noted in review of the chart prior to signing ED Disposition - Plan for ED Patient: Disposition: Home or Assisted Living Diagnosis: Chest pain of uncertain etiology Instructions: CHEST PAIN, Uncertain Cause Referrals: Ugo Sim DO [Primary Care Provider] - 5-7 Days
[2018-12-05 20:10] LABS: Absolute Lymphocyte Count 3.17 X10^3/uL (0.83-4.51); Absolute Neutrophil Count 6.1 X10^3/uL (2.0-7.7); Basophil# 0.02 X10^3/uL; Basophil% 0.2 % (0-1); Eosinophil# 0.13 X10^3/uL; Eosinophils% 1.3 % (0-5); Hemoglobin 14.6 g/dL (13.0-16.5); Lymphocyte # 3.17 X10^3/ul (4.0); Lymphocyte % 31.5 % (19-41); Mean Corp Hgb Conc 34.8 g/dL (32-36); Mean Corpuscular Hgb 30.5 pg (27.0-32.0); Mean Corpuscular Volume 87.7 fL (80-94); Mean Platelet Vol. 9.7 fl (6.2-12.0); Monocyte# 0.57 X10^3/uL; Monocyte% 5.7 % (0-10); NRBC Flagged by Analyzer 0 % (0-5); Neutrophil # 6.13 X10^3/uL (2.7-7.7); Neutrophil % 60.9 % (47-70); Platelet Count 252 K/mm3 (150-450); RBC Distribution Width CV 11.9 % (11.6-14.6); RBC Distribution Width SD 38.5 fl (35.1-43.9); Red Blood Count 4.79 M/mm3 (4.6-6.2); White Blood Count 10.1 K/mm3 (4.4-11.0)
[2018-12-05] MEDS: Aspirin 81 MG TAB.CHEW 324 MG PO (20:12)
[2018-12-05] MEDS: Nitroglycerin SL (ED/IMG/CATH) 0.4 MG TABLET SUBLINGUAL (20:12)
[2018-12-05 20:30] VITALS: BP 108/70; PULSE 72; RESP 18; O2SAT 97
[2018-12-05 20:30] LABS: Anion Gap 3 (5-15); BUN 12 mg/dL (7-18); BUN/Creat Ratio 13.3 RATIO (10-20); Calcium,Total 8.9 mg/dL (8.5-10.1); Chloride 108 mmol/L (98-107); EST Glomerular Filtration Rate 104 mL/min (>60); Est Glom Filt Rate - Afr Amer 125 mL/min (>60); Estimated Creatinine Clearance 117.07 ml/min; Glucose 87 mg/dL (74-106); Potassium 3.7 mmol/L (3.5-5.1); Sodium Level 140 mmol/L (136-145)
--- NOTE | 2018-12-05 20:35 | ED.RN ---
2/10 CHEST PAIN AFTER 1 DOSE SL NITRO. PT STATES HE DOESN'T WANT THE NEXT DOSE. RN WILL CONTINUE TO MONITOR.
[2018-12-05 21:03] VITALS: BP 143/97; PULSE 63; RESP 18; O2SAT 98
== END 2018-12-05 21:06 | disposition home or self-care (01) ==
PROVIDERS: Emergency Provider Emergency Medicine; Family Provider Student in an Organized Health Care Education/Training Program; PCP Student in an Organized Health Care Education/Training Program
DX: R07.9 Chest pain, unspecified (principal); M79.601 Pain in right arm; Z72.0 Tobacco use; Z82.49 Family history of ischemic heart disease and other diseases of the circulatory system
CPT/HCPCS: 71045; 80048; 84484; 85025; 93005; 99285; A4216

== ENCOUNTER 2019-05-17 13:24 | Emergency (ER) | payer SELFPAY ==
[2019-05-17 13:28] VITALS: BP 155/82; PULSE 103; RESP 20; TEMP 36.8; O2SAT 96; BMI 21.9
[2019-05-17] MEDS: 0.9% Normal Saline 1,000 ML 1000 ML IV (14:16)
[2019-05-17] MEDS: DiphenhydrAMINE 50 MG/ML Syringe 25 MG IV (14:17)
[2019-05-17] MEDS: Metoclopramide 10 MG/2 ML Vial IV (14:18)
[2019-05-17] MEDS: Ketorolac 30 MG/ML Syringe IV (14:19)
[2019-05-17 14:20] VITALS: RESP 18
--- NOTE | 2019-05-17 14:43 | ED.DCSUM_ITS ---
- ER Visit Summary Date of Service: 05/17/19 Chief Complaint: [Headache History of present illness: The patient is a 34-year-old male presents the emergency department with complaint of a headache that started 3 days ago. Patient states that the headache came on while at rest somewhat suddenly described as frontal and then became diffuse involving the whole head. Patient initially thought he might be coming down with the flu although he has had no fever or cough that significant out of the ordinary or sore throat or body aches. Patient does describe some photophobia and some nausea. Patient states that he does get occasional headaches from time to time. His mother does have history of migraines.] Patient denies any falls or head injuries. No family history of brain tumors or aneurysms. Physical Examination: [HEENT-PERRLA, EOMI. Cranial nerves II through XII grossl y intact. TMs clear. Mucous membranes moist. No adenopathy. Cardiovascular-regular rate and rhythm without murmur or ectopy Lungs-clear to auscultation, chest wall stable without crepitus or subcu emphysema Abdomen-normoactive bowel sounds, soft, nontender, no rebound or rigidity, no peritoneal signs. Neuro [id number] and heel rivera testing within normal limits, negative Romberg, negative for drift, fundi benign Extremities-intact ?4, normal range of motion, normal pulses, atraumatic] Test Results: [None indicated] Emergency Department Course and Treatment: [Patient received a liter normal saline fluid bolus as well as Reglan, Benadryl, and Toradol. His headache improved from an 8 out of 10 to a 2-3 out of 10. Patient is feeling markedly better.] Treatment Plan: Follow-up with primary care physician in 3 to 5 days. [] Disposition: [Discharged home in stable condition] Impression: [Cephalgia-suspect migraine] This note was generated with [employer] dictation software. It may contain incorrect words, spelling, and punctuation that were not noted in review of the chart prior to signing ED Disposition - Plan for ED Patient: Referrals: Ugo Sim [Primary Care Provider] -
--- NOTE | 2019-05-17 14:46 | ED.DEP ---
ED Disposition - Plan for ED Patient: Instructions: HEADACHE, Unspecified Referrals: Ugo Sim [Primary Care Provider] - 3-5 Days
[2019-05-17 15:00] VITALS: BP 104/75; PULSE 87; RESP 15; O2SAT 99
== END 2019-05-17 15:05 | disposition home or self-care (01) ==
LOC: ED 13:40
PROVIDERS: Emergency Provider Emergency Medicine; PCP Student in an Organized Health Care Education/Training Program
DX: R51 Headache (principal); F12.90 Cannabis use, unspecified, uncomplicated; Z72.0 Tobacco use; Z82.0 Family history of epilepsy and other diseases of the nervous system
CPT/HCPCS: 96361; 96374; 96375; 99283; J7030; A4216

== ENCOUNTER 2019-05-24 08:57 | Emergency (ER) | payer SELFPAY ==
[2019-05-24 08:57] VITALS: BP 136/93; PULSE 77; RESP 18; TEMP 36.1; O2SAT 98; BMI 23.1
--- NOTE | 2019-05-24 09:04 | CT_ITS ---
STUDY: CT BRAIN WITHOUT CONTRAST REASON FOR EXAM: Male, 34 years old. Migraine headache with nausea, vomiting and photophobia. Marijuana use. RADIATION DOSAGE (If Supplied By Facility): CTDIvol = ( 44.99 ) mGy, DLP = ( 796.11 ) mGycm TECHNIQUE: Transaxial CT imaging of the brain was performed without administration of intravenous contrast material. Coronal and sagittal reconstructions were performed. Individualized dose optimization techniques were used for this CT. COMPARISON: CT head without contrast 10/15/2011. FINDINGS: Normal soft tissue structures. Normal calvarium. Normal size ventricles and extra-axial spaces for the patient''s age. Normal white matter tracts of the cerebral hemispheres. Normal basal ganglia and thalami. Normal brainstem. Normal cerebellum. There is no intracranial hemorrhage. There are no findings of an acute ischemic infarction. Prominent benign mucus retention cysts in the maxillary sinuses. Mild mucosal thickening of the middle and posterior ethmoid sinuses. Minimal mucosal thickening of the left sphenoid sinus and mild mucosal thickening in the left frontal sinus. CT/Brain/Head without Contrast IMPRESSION: 1. Normal unenhanced CT scan of the brain unchanged since 10/15/2011. 2. Mucosal thickening in the middle and posterior ethmoid sinuses, left sphenoid sinus and left frontal sinus and prominent bilateral mucous retention cysts in the maxillary sinuses. These were not present previously. Electronically Signed: Kamran Pearson MD at 9:49 EST , Service support ,
--- NOTE | 2019-05-24 09:04 | ED.VIS.GEN ---
History of Present Illness Chief Complaint: Headache Informant: Patient Onset: Today Context: Gradual Onset Timing: Continuous Current Severity: Moderate Maximum Severity: Severe Narrative: The patient is a 34-year-old male with no significant medical history the presents to the emergency department with headache. Patient states he does not have a significant history of migraines. He states that he got his first similar headache about a week ago. He was seen here and treated with migraine abortive medications with marked improvement. He states he is been headache free for a week until overnight and this morning. He describes a pressure behind both eyes. He got acutely nauseated and did vomit twice. He states he feels generally unwell. He denies any focal symptoms. He denies any neck pain. He denies any trauma. There is no family history of aneurysm or polycystic kidney disease. He was not able to keep down any medications to try and relieve his headache at home. Prior similar symptoms: Yes Recent Illness/Hospitalization: No Past Medical History - Allergies and Home Meds Allergies/Adverse Reactions: Allergies oxycodone Adverse Reaction (Verified 05/24/19 08:59) I BECOME VIOLENT Primary Care Physician: Ugo Sim [Primary Care Provider] - Prior records reviewed: Yes Past Medical History: None Surgical History: noncontributory Smoking Status: Current every day smoker Review of Systems General: Denies: Chills, Fever, Sweats Eyes: Denies: Visual changes - bilaterally, Diplopia ENT: Denies: Rhinorrhea, Sore throat Cardiovascular: Denies: Chest pain, Palpitations Respiratory: Denies: Dyspnea, Cough, Dyspnea on exertion Gastrointestinal: Reports: Nausea, Vomiting. Denies: Abdominal pain, Diarrhea, Melena, Hematochezia Genitourinary: Denies: Dysuria, Hematuria, Frequency Musculoskeletal: Denies: Back pain, Extremity Pain Skin: Denies: Rash, Wounds Neurological: Reports: Headache. Denies: Weakness, Numbness Physical Exam Vital Signs/Narrative: Vital Signs Temp Pulse Resp BP Pulse Ox 05/24/19 08:57 97 F L 77 18 136/93 H 98 Inital Vital Signs reviewed: Yes General: Well nourished, Well developed, No Acute Distress Head: Normocephalic, Atraumatic Eyes: Perrl, EOMI ENT: Moist mucous membranes, No rhinorrhea Neck: Supple, Nontender Cardiovascular: Regular rate, Regular rhythm, No murmurs Respiratory: No distress, CTA bilaterally, Chest nontender Abdomen: Soft, Nontender, Nondistended, Normal bowel sounds Back: Nontender, Normal Inspection Extremities: Nontender, No edema Skin: Normal color, No rash Neurological: Alert, Oriented x3, Cranial nerves II-XII grossly intact, Normal Strength, Normal Sensation Psychological: Normal affect, Normal Mood Diagnostic/Tx/Re-eval Clinical Impression(s) from Imaging Studies Brain CT 05/24/19 09:04 IMPRESSION: 1. Normal unenhanced CT scan of the brain unchanged since 10/15/2011. 2. Mucosal thickening in the middle and posterior ethmoid sinuses, left sphenoid sinus and left frontal sinus and prominent bilateral mucous retention cysts in the maxillary sinuses. These were not present previously. Electronically Signed: Kamran Pearson MD at 9:49 EST , Service support , - Medical Decision Making The patient presents with recurrent headache. He does not have a documented history of migraines. As the headache had returned and he was nauseated and photophobic, noncontrast head CT was obtained. The patient is not encephalopathic or meningitic. His neurologic exam is reassuring. CT this shows no acute intracranial abnormality, but does show evidence of sinusitis. I did discuss this with the patient and he was able to get more symptoms that he has had significant nasal congestion and facial fullness which she did not describe before. With migraine abortive medication, the patient is headache free. He will be given a dose of Decadron to prevent rebound. He will also be started on antibiotics given the findings of sinusitis and his symptoms. He is comfortable with this plan of care and will be discharged home. Impression 1. Sinus headache ED Disposition - Plan for ED Patient: Instructions: Sinus Headache Prescriptions: Amox/Clavulanate Tablet [Augmentin Tablet] 875 mg PO Q12H #20 tab Prescription Printed Referrals: Ugo Sim [Primary Care Provider] -
[2019-05-24] MEDS: proCHLORPERazine 10 MG/2 ML Vial IV (09:22)
[2019-05-24] MEDS: Ketorolac 30 MG/ML Syringe IV (09:22)
[2019-05-24] MEDS: DiphenhydrAMINE 50 MG/ML Syringe IV (09:22)
[2019-05-24] MEDS: 0.9% Normal Saline 1,000 ML 999 ML IV (09:22)
[2019-05-24] MEDS: dexAMETHasone 10 MG/ML Vial IV (10:06)
== END 2019-05-24 10:12 | disposition home or self-care (01) ==
PROVIDERS: Emergency Provider Emergency Medicine; PCP Student in an Organized Health Care Education/Training Program
DX: J32.9 Chronic sinusitis, unspecified (principal); F17.200 Nicotine dependence, unspecified, uncomplicated
CPT/HCPCS: 70450; 96361; 96374; 96375; 99283; J7030; A4216

== ENCOUNTER 2020-02-08 19:11 | Emergency (ER) | payer SELFPAY ==
[2020-02-08 19:12] VITALS: BP 135/85; PULSE 115; RESP 16; TEMP 36.3; O2SAT 100; BMI 22.4
--- NOTE | 2020-02-08 19:19 | CT_ITS ---
STUDY: CT ABDOMEN AND PELVIS WITHOUT CONTRAST REASON FOR EXAM: Male, 34 years old. LT FLANK PAIN X 2 DAYS RADIATION DOSAGE (If Supplied By Facility): CTDIvol = ( 7.17 ) mGy, DLP = ( 344.31 ) mGycm TECHNIQUE: Transaxial images were obtained from the dome of the diaphragm to the symphysis pubis without oral contrast, and without intravenous contrast. Sagittal and coronal images were reconstructed. Individualized dose optimization techniques were used for this CT. COMPARISON: 04/03/2018 FINDINGS: The visualized lung bases are unremarkable. The visualized portions of the heart are within normal limits. Normal liver. There is non-visualization of the gallbladder, which may be secondary to either contraction or a prior cholecystectomy. Normal spleen. Normal pancreas. Normal bilateral adrenal glands. Remote right renal infarct. 2 mm nonobstructing right renal stone. Normal left kidney. Normal visualized stomach. Normal small intestine. Normal colon. The appendix is visualized and appears normal. Normal abdominal aorta. Normal inferior vena cava. Normal retroperitoneum. 3 x 2 cm right-sided bladder diverticulum. Normal abdominal wall. Normal osseous structures. CT/Abdomen/Pelvis without Cont IMPRESSION: No evidence of appendicitis, acute intestinal pathology, or acute obstructive uropathy. Right-sided bladder diverticulum. Electronically Signed: Toney Patel MD at 20:18 EST Tel , Service support ,
--- NOTE | 2020-02-08 19:19 | ED.VISSUMM ---
- ER Visit Summary Date of Service: 02/08/20 Chief Complaint: Left flank pain History of Present Illness: The patient is a 34 M presenting with left flank pain. Patient states this started last night. Pain has worsened throughout the day today. He denies blood in his urine, states his urine has been darker than normal. Denies dysuria. No history of kidney stones but he does have a family history of kidney stones. No known injury. No fever or other complaints. Physical Examination: Vitals are stable. Patient is afebrile. Alert no acute distress. HEENT exam is unremarkable. Neck is supple. Lungs are clear and equal bilaterally. Heart is regular rate and rhythm. Abdomen is soft nontender nondistended. No guarding or rebound Back: Left CVA tenderness Extremities are unremarkable. Skin is warm and dry. No focal neurologic deficit. Remainder of exam is unremarkable. Emergency Department Course and Treatment: Patient is given IV fluids, Toradol, Zofran. CT flank shows no evidence of appendicitis, acute intestinal pathology, or acute obstructive uropathy. Right-sided bladder diverticulum. On reevaluation, patient feels much improved. He has not given a urine sample but is requesting discharge home. He states his symptoms have resolved. Discussed possibility of recently passed stone. He is given information for Dr. Whittaker as needed for follow-up. Advised to return to the ED for worsening complaints. Disposition: Discharge home Impression: Left flank pain This note was generated with [employer] dictation software. It may contain incorrect words, spelling, and punctuation that were not noted in review of the chart prior to signing ED Disposition - Plan for ED Patient: Instructions: ED Flank Pain Uncertain Cause Referrals: Yifan Whittaker MD [STAFF PHYSICIAN] - Ugo Sim [Primary Care Provider] -
[2020-02-08] MEDS: Ketorolac 15 MG/ML Vial IV (19:33)
[2020-02-08] MEDS: Ondansetron 4 MG/2 ML Vial IV (19:33)
[2020-02-08] MEDS: 0.9% Normal Saline 1,000 ML 250 ML IV (19:35)
--- NOTE | 2020-02-08 20:44 | ED.DEP ---
ED Disposition - Plan for ED Patient: Instructions: ED Flank Pain Uncertain Cause Referrals: Ugo Sim [Primary Care Provider] - Yifan Whittaker MD [STAFF PHYSICIAN] -
[2020-02-08 20:58] VITALS: BP 130/60; PULSE 78; RESP 18; O2SAT 96
== END 2020-02-08 20:59 | disposition home or self-care (01) ==
LOC: ED 19:32
PROVIDERS: Emergency Provider Emergency Medicine; PCP Student in an Organized Health Care Education/Training Program
DX: R10.9 Unspecified abdominal pain (principal); N32.3 Diverticulum of bladder; Z72.0 Tobacco use; Z84.2 Family history of other diseases of the genitourinary system
CPT/HCPCS: 74176; 96374; 96375; 99282; A4216; J2405

== ENCOUNTER 2020-05-12 12:49 | Emergency (ER) | payer SELFPAY ==
[2020-05-12 12:49] VITALS: BP 141/86; PULSE 109; RESP 17; TEMP 36.1; O2SAT 98; BMI 19.9
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
[2020-05-12] MEDS: Naproxen 500 MG Tablet PO (13:52)
[2020-05-12] MEDS: HYDROcodone Bitartrate/Apap 5/325 Tablet PO (13:52)
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
--- NOTE | 2020-05-12 14:55 | ED.RN ---
DISCHARGE INSTRUCTIONS GIVEN TO AND REVIEWED WITH PATIENT, PATIENT DENIES QUESTIONS OR CONCERNS AND VOICES UNDERSTANDING OF DISCHARGE INSTRUCTIONS. PT AMBULATES OUT OF ROOM WITHOUT DIFFICULTY.
== END 2020-05-12 14:56 | disposition home or self-care (01) ==
PROVIDERS: Emergency Provider Emergency Medicine; PCP Student in an Organized Health Care Education/Training Program
DX: S60.222A Contusion of left hand, initial encounter (principal); V43.52XA Car driver injured in collision with other type car in traffic accident, initial encounter; W22.11XA Striking against or struck by driver side automobile airbag, initial encounter; Y93.89 Activity, other specified; Y92.9 Unspecified place or not applicable; Y99.9 Unspecified external cause status; F17.200 Nicotine dependence, unspecified, uncomplicated
CPT/HCPCS: 73130; 99283

== ENCOUNTER 2020-12-02 02:45 | Emergency (ER) | payer SELFPAY ==
[2020-12-02 02:46] VITALS: BP 144/92; PULSE 121; RESP 18; TEMP 36; O2SAT 96; BMI 19.9
[2020-12-02] MEDS: Ketorolac 15 MG/ML Vial IV (03:12)
[2020-12-02] MEDS: Metoclopramide 10 MG/2 ML Vial IV (03:12)
[2020-12-02] MEDS: 0.9% Normal Saline 1,000 ML 999 ML IV (03:12)
[2020-12-02] MEDS: DiphenhydrAMINE 50 MG/ML Syringe 25 MG IV (03:13)
--- NOTE | 2020-12-02 03:24 | EDS_ITS ---
HPI History of Present Illness Chief Complaint: Headache Narrative Narrative: Patient presenting with headache for 3 days. He states he has a history of migraines. He states is behind his right and right side of his head. He denies any head trauma. Patient states he has previously had head CTs which were normal. Patient has nausea which is associated. He does not have visual complaints. Patient denies fever or chills. He is not had a cough or shortness of breath. He feels as if his headaches making him nauseous and he cannot hydrate well. [facility] Home Medications NK 12/02/20 [History Last Taken Unknown] Allergy/AdvReac Type Severity Reaction Status Date / Time oxycodone AdvReac I BECOME Verified 05/12/20 12:49 VIOLENT Surgical History History of cholecystectomy Social History Smoking Status: Current every day smoker tobacco type: cigarettes ROS ROS ED Constitutional Constitutional ED: Denies chills, fever(s) or sweats Eyes Eyes: Denies blurry vision or diplopia ENT ENT ED: Denies rhinorrhea or sore throat Cardiovascular Cardiovascular: Denies chest pain or palpitations Respiratory/Chest Respiratory/Chest: Denies cough, dyspnea, dyspnea on exertion or sputum Gastrointestinal Gastrointestinal: Reports nausea; Denies abdominal pain, diarrhea or vomiting Genitourinary Genitourinary ED: Denies dysuria or hematuria Musculoskeletal Musculoskeletal: Denies arthralgias, back pain, myalgias or neck pain Integumentary Denies Abrasions or rash Neurologic Neurologic: Reports headache(s); Denies paresthesias EXAM Physical Exam Const Vital Signs: 12/02/20 02:46 Temperature 96.8 F L Temperature Source Temporal Pulse Rate 121 H Respiratory Rate 18 Blood Pressure 144/92 H Blood Pressure Mean 109 Pulse Ox 96 Oxygen Delivery Method Room Air Positive well nourished General Appearance ED: NAD HEENT Reports normocephalic and moist mucous membranes atraumatic Eyes PERRL and EOMs intact bilaterally Cardio regular rhythm Rate: tachycardic Extremity normal to inspection and full ROM Neuro oriented x3, CN's II-XII intact bilaterally and no sensory deficits noted Sensorium / Orientation: awake and alert Motor Exam: strength 5/5 throughout Skin Lesions: no lesions Rashes: no rashes MDM MDM MDM Narrative Medical decision making narrative: Patient presented with headache for 3 days. He claims he has a history of migraine. He has no red flag signs or symptoms and this was not an acute onset headache. Patient has not had any fever either. Patient will be treated with IV fluids, Reglan, Benadryl, Toradol. He will be reevaluated. I do not believe he needs a head CT at this time and he has no focal neurologic deficits. After patient treatment is reevaluated and feels improved. At this time he wants to go home. He will be discharged home in stable condition. Impression: 1. Headache Discharge Plan Triage Chief Complaint: Headache ED Provider: Sherif Santillan Dx/Rx/DC Orders Prescriptions: No Action NK RF: 0 Primary Care Provider: Ugo Sim
[2020-12-02 04:28] VITALS: BP 138/78; PULSE 99; RESP 18; O2SAT 97
== END 2020-12-02 04:28 | disposition home or self-care (01) ==
PROVIDERS: Emergency Provider Student in an Organized Health Care Education/Training Program; PCP Student in an Organized Health Care Education/Training Program
DX: R51.9 Headache, unspecified (principal); F17.210 Nicotine dependence, cigarettes, uncomplicated
CPT/HCPCS: 96361; 96374; 96375; 99283; J7030

== ENCOUNTER 2021-01-07 20:21 | Emergency (ER) | payer SELFPAY ==
[2021-01-07 20:22] VITALS: BP 115/87; PULSE 76; RESP 16; TEMP 36.7; O2SAT 100; BMI 23.1
--- NOTE | 2021-01-07 22:13 | ED.RN ---
PT LEFT WITHOUT BEING SEEN. MY HEADACHE IS GONE, I FEEL GREAT, I SLEPT AND NOW I'M GOOD
== END 2021-01-07 22:15 | disposition left against medical advice (07) ==
PROVIDERS: PCP Student in an Organized Health Care Education/Training Program
DX: R69 Illness, unspecified (principal); Z53.21 Procedure and treatment not carried out due to patient leaving prior to being seen by health care provider
CPT/HCPCS: 99282; A4216

== ENCOUNTER 2023-03-25 09:33 | Emergency (ER) | payer SELFPAY ==
[2023-03-25 09:33] VITALS: BP 154/97; PULSE 88; RESP 14; TEMP 36.3; O2SAT 100; BMI 22.2
--- NOTE | 2023-03-25 09:48 | EKG12_ITS ---
Test Reason : CP Blood Pressure : / mmHG Vent. Rate : 096 BPM Atrial Rate : 096 BPM P-R Int : 174 ms QRS Dur : 096 ms QT Int : 358 ms P-R-T Axes : 076 080 074 degrees QTc Int : 452 ms Normal sinus rhythm Normal ECG Confirmed by BERRY DUENAS, PORTER ([id number]), food editor DIONTE NOBLE ([id number]) on 03/27/2023 8:33:47 AM Referred By: SHALA Confirmed By:PORTER SMART MD
--- NOTE | 2023-03-25 09:49 | ED.VIS.CHEST ---
HPI History of Present Illness Chief Complaint: Chest Pain Informant: patient Onset/Context/Timing Onset: Hours Narrative Narrative: Patient presents secondary to left-sided chest pain. He states when he woke this morning he had an aching pressure sensation in his left upper chest and will get occasional sharp pains that go up to his shoulder as well as down into his left lower ribs. Pain seems to be worse with a deep breath. Moving his left arm does not seem to bother him. He felt well when he went to bed last evening. 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 His first thought was he may have pulled a muscle. He does not know much of his family history as he did grow up in foster care. PFSH PFS Medical History no medical history no medical history Home Medications naproxen 500 mg tablet (Naprosyn) 500 mg PO BID PRN pain #20 tabs 03/25/23 [Rx Last Taken Unknown] Allergy/AdvReac Type Severity Reaction Status Date / Time oxycodone AdvReac I BECOME Verified 03/25/23 09:35 VIOLENT Surgical History H/O hernia repair History of cholecystectomy Social History Smoking Status: Current every day smoker tobacco type: cigarettes ROS ROS ED Constitutional Constitutional ED: Denies chills or fever(s) Eyes Eyes: Denies discharge from eye(s) ENT ENT ED: Denies discharge from eye(s), rhinorrhea or sore throat Cardiovascular Cardiovascular: Reports chest pain; Denies palpitations Respiratory/Chest Respiratory/Chest: Denies cough or dyspnea Gastrointestinal Gastrointestinal: Denies abdominal pain, nausea or vomiting Genitourinary Genitourinary ED: Denies dysuria Musculoskeletal Musculoskeletal: Denies back pain or extremity pain Integumentary Denies Abrasions or rash Neurologic Neurologic: Denies headache(s) or weakness Psychiatric Psychiatric: Denies anxiety or depression Allergic/Immunologic Allergic/Immunologic ED: Denies lip swelling or urticaria EXAM Physical Exam Const Vital Signs: 03/25/23 09:33 03/25/23 09:33 03/25/23 09:48 Temperature 97.3 F L Temperature Source Temporal Pulse Rate 88 Respiratory Rate 14 Respiratory Effort Normal Non-Labored Blood Pressure 154/97 H Blood Pressure Mean 116 Pulse Ox 100 Oxygen Delivery Method Room Air Room Air Positive well nourished and well developed General Appearance ED: well developed HEENT Reports moist mucous membranes Eyes EOMs intact bilaterally Chest Wall inspection of chest normal and palpation of chest normal Resp normal respiratory effort and clear to auscultation bilaterally Cardio regular rate and regular rhythm GI soft to palpation and non-tender Extremity normal to inspection Neuro oriented x3 and no sensory deficits noted Motor Exam: strength 5/5 throughout Psych mental status grossly normal Skin no rashes or lesions noted MDM MDM MDM Narrative Medical decision making narrative: Patient placed on electronic device monitor. IV line initiated. EKG obtained to evaluate for cardiac arrhythmia/ischemia. Chest x-ray obtained to evaluate for acute lung pathology, cardiac size, or mediastinal abnormality. Labwork obtained to evaluate for leukocytosis, anemia, and electrolyte derangement. Lab Data Labs: Laboratory Results - last 24 hr 03/25/23 09:57 WBC 5.8 RBC 5.20 Hgb 15.6 Hct 44.8 MCV 86.2 MCH 30.0 MCHC 34.8 RDW Std Deviation 38.7 RDW Coeff of Gonzalo 12.3 Plt Count 296 MPV 9.2 Immature Gran % (Auto) 0.200 Neut % (Auto) 47.0 Lymph % (Auto) 43.3 H [place] % (Auto) 7.1 Eos % (Auto) 1.9 Baso % (Auto) 0.5 Absolute Neuts (auto) 2.7 Absolute Lymphs (auto) 2.50 Nucleated RBC % 0 D-Dimer Quant (PE/DVT) < 0.27 L Sodium 139 Potassium 4.2 Chloride 108 H Carbon Dioxide 27.0 Anion Gap 4 L BUN 12 Creatinine 0.85 Estim Creat Clear Calc 116.01 Est GFR (MDRD) Af Amer 131 Est GFR (MDRD) Non-Af 109 BUN/Creatinine Ratio 14.2 Glucose 107 H Calcium 9.7 Troponin I High Sens 4 Radiography Chest X-Ray - ED: 1 View, Read by ED Physician, Normal, Heart, Lungs and Mediastinum Diagnostic Testing: Clinical Impression(s) from Imaging Studies Chest X-Ray 03/25/23 10:05 IMPRESSION: No radiographic evidence of acute cardiopulmonary disease. Electronically Signed: Danna Beasley MD at 10:41 EST , EKG Initial EKG: Attestation: I personally reviewed and interpreted this EKG as follows: Interpretation: Sinus Rhythm (Sinus at 96 with no acute ischemia.) Treatment and Re-Evaluation :: CBC was normal white count 5.8 with normal differential. Hemoglobin is normal at 15.6. Chemistry studies unremarkable. Troponin is normal at 4 and D-dimer is less than 0.27. Portable chest x-ray per my interpretation reveals no acute findings. Radiology interpretation reviewed and agrees. EKG is sinus rhythm with no acute ischemia. On repeat evaluation patient resting comfortably. Test results are discussed with him. He will be treated with anti-inflammatories from chest wall strain. Return instructions were provided. Discharge Plan Triage Chief Complaint: Chest Pain ED Provider: Ppier Srinivasan Dx/Rx/DC Orders Clinical Impression: Chest wall muscle strain Instructions: ED Chest Wall Strain Prescriptions: New naproxen [Naprosyn] 500 mg tablet 500 mg PO BID PRN (Reason: pain) Qty: 20 0RF Primary Care Provider: Ugo Sim Referrals: Ugo Sim OLS [[facility]] - 1 Week if not improving Disposition Disposition: Home, Self Care
[2023-03-25] MEDS: Aspirin 81 MG TAB.CHEW 324 MG PO (09:58)
[2023-03-25 10:04] LABS: Absolute Neutrophil Count 2.7 X10^3/uL (2.0-7.7); Basophil# 0.03 X10^3/uL; Basophil% 0.5 % (0-1); Eosinophil# 0.11 X10^3/uL; Eosinophils% 1.9 % (0-5); Hematocrit 44.8 % (40-54); Hemoglobin 15.6 g/dL (13.0-16.5); Lymphocyte % 43.3 % (19-41); Mean Corp Hgb Conc 34.8 g/dL (32-36); Mean Corpuscular Volume 86.2 fL (80-94); Mean Platelet Vol. 9.2 fl (6.2-12.0); Monocyte# 0.41 X10^3/uL; Monocyte% 7.1 % (0-10); NRBC Flagged by Analyzer 0 % (0-5); Neutrophil # 2.71 X10^3/uL (2.7-7.7); Platelet Count 296 K/mm3 (150-450); RBC Distribution Width CV 12.3 % (11.6-14.6); RBC Distribution Width SD 38.7 fl (35.1-43.9); White Blood Count 5.8 K/mm3 (4.4-11.0)
--- NOTE | 2023-03-25 10:05 | RAD_ITS ---
INDICATION: chest pain EXAMINATION/TECHNIQUE: X-RAY - XR Chest 1 View COMPARISON: December 05, 2018 FINDINGS: LINES/DEVICES: None. LUNGS: No consolidation, edema or effusion. No pneumothorax. MEDIASTINUM AND CARDIOVASCULAR STRUCTURES: Cardiac silhouette not enlarged. Central airways and mediastinal contour are unremarkable. BONES AND SOFT TISSUES: Unremarkable. RAD/Chest 1 View (Portable) IMPRESSION: No radiographic evidence of acute cardiopulmonary disease. Electronically Signed: Danna Beasley MD at 10:41 EST ,
--- OUTSIDE RECORDS SUMMARY | 2023-03-25 10:17 | XMS RPT_ITS | CCD ---
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 Name Role Phone [employer] Unavailable Unavailable NO REFERRING DR Unavailable Unavailable UNKNOWN, PROVIDER Unavailable Unavailable UGO PUGA DO Primary Care Physician Ugo Puga DO Primary Care Provider [phone] UGO PUGA Referring Unavailable VIVIEN, UGO Ed Primary Care Unavailable UGO PUGA DO Primary Care Physician TOYA DUENAS, DR RUSSELL Attending Unavailabl e UGO PUGA DO Primary Care Unavailable PUGA, UGO L Referring Unavailable PUGA, UGO L Primary Care Unavailable PUGA, UGO L Referring Unavailable PUGA, UGO L Primary Care Unavailable PUGA, UGO L Referring Unavailable PUGA, UGO L Primary Care Unavailable PUGA, UGO L Attending Unavailable PUGA, UGO L Primary Care Unavailable PUGA, UGO L Primary Care Unavailable ZHENG SEO Referring Unavailable PUGA, UGO Ed Primary Care Unavailable RENETTALOGZHENG MORAN Attending Unavailable PUGA, UGO L Primary Care Unavailable PUGA, UGO L Attending Unavailable PUGA, UGO L Primary Care Unavailable PUGA, UGO L Referring Unavailable PUGA, UGO L Primary Care Unavailable PUGA, UGO L Primary Care Unavailable PUGA, UGO L Referring Unavailable PUGA, UGO L Primary Care Unavailable PUGA, UGO L Referring Unavailable PUGA, UGO L Primary Care Unavailable Allergies Allergy Classification Reported Allergen(s) Allergy Type Date of Onset Reaction(s) Facility (16 sources) oxyCODONE; Translations: [OXYCODONE] Drug Allergy 7 Physical aggression (finding), Mental Status Change [facility] Repository Medications Current Medications Medication Drug Class(es) Dates Sig (Normalized) Sig (Original) amoxicillin 875 mg oral tablet (1 source) Penicillin-class Antibacterial Start: 12-21-2022 End: 12-28-2022 take 1 tablet by mouth twice daily amoxicillin (AMOXIL) 875 mg tablet Take 1 tablet by mouth two times a day for 7 days. 14 tablet 0 12/21/2022 12/28/2022 Active Completed/Discontinued Medications Medication Drug Class(es) Dates Sig (Normalized) Sig (Original) 24 hr buPROPion hydrochloride 150 mg extended release oral tablet (11 sources) Aminoketone Start: 05-02-2022 take 1 tablet by mouth once daily in the morning buPROPion XL (WELLBUTRIN XL) 150 mg 24 hr tablet Indications: Tobacco use Take 1 tablet by mouth once daily. In the morning, for tobacco use cessation 30 tablet 1 05/02/2022 Active Problems Active Problems Problem Classification Problem Date Documented Da te Episodic/Chronic Abdominal pain (20 sources) Unspecified abdominal pain; Translations: [Generalized abdominal pain] Onset: 01-29-2015 Episodic Adjustment disorders (13 sources) Stress; Translations: [Reaction to severe stress, unspecified] Onset: 05-02-2022 Chronic Anxiety disorders (1 source) Anxiety disorder, unspecified; Translations: [ANXIETY DISORDER UNSPECI] Onset: 07-26-2016 Chronic Diabetes mellitus without complication (11 sources) Prediabetes; Translations: [Prediabetes] 06-03-2015 Episodic Disorders of lipid metabolism (5 sources) Mixed hyperlipidemia; Translations: [Mixed hyperlipidemia] Onset: 07-20-2022 Chronic Disorders of teeth and jaw (1 source) Infection of tooth; Translations: [Periapical abscess without sinus] 12-21-2022 Episodic Inflammation; infection of eye (except that caused by tuberculosis or sexually transmitteddisease) (1 source) Acute infectious conjunctivitis; Translations: [Unspecified acute conjunctivitis, right eye] Episodic Mood disorders (1 source) Major depressive disorder, single episode, unspecified; Translations: [KWAKU DEPRESS D/O SINGLE E] Onset: 07-26-2016 Nutritional deficiencies (5 sources) Vitamin D deficiency; Translations: [Vitamin D deficiency, unspecified] Onset: 07-20-2022 Chronic Other diseases of kidney and ureters (7 sources) Disorder of kidney and/or ureter; Translations: [Other specified disorders of kidney and ureter] Onset: 07-20-2022 Chronic Other diseases of kidney and ureters (2 sources) Renal mass; Translations: [Other specified disorders of kidney and ureter] Chronic Other diseases of kidney and ureters (2 sources) Other specified disorders of kidney and ureter; Translations: [Other specified disorders of kidney and ureter] Onset: 06-06-2022 Chronic Other lower respiratory disease (1 source) Shortness of breath; Translations: [SOB (shortness of breath)] Onset: 05-02-2022 Episodic Other nervous system disorders (1 source) Other chronic pain; Translations: [Chronic bilateral thoracic back pain] Onset: 05-02-2022 Chronic Other non-traumatic joint disorders (1 source) Pain in right hip joint; Translations: [Pain in right hip] Episodic Other skin disorders (1 source) Swelling / lump finding; Translations: [Localized swelling, mass and lump, head] Onset: 02-01-2021 Episodic Substance-related disorders (2 sources) Nicotine dependence, cigarettes, uncomplicated; Translations: [Cannabis abuse, uncomplicated] Onset: 07-26-2016 Chronic Superficial injury; contusion (3 sources) Contusion of hip; Translations: [Contusion of unspecified hip, initial encounter] Onset: 08-23-2022 Episodic Unclassified (1 source) Lumbar back pain; Translations: [Lumbar back pain] Onset: 05-02-2022 Past or Other Problems Problem Classification Problem Date Documented Da te Episodic/Chronic Abdominal hernia (11 sources) Hernia of anterior abdominal wall; Translations: [Ventral hernia without obstruction or gangrene] Onset: 8 04-11-2017 Episodic Allergic reactions (1 source) Allergy status to narcotic agent status; Translations: [ALLERGY STATUS NARCOTIC] Onset: 7 Episodic Cardiac dysrhythmias (12 sources) Palpitations; Translations: [Palpitations] Onset: 3 Episodic Gastrointestinal hemorrhage (11 sources) Gastrointestinal hemorrhage; Translations: [Hemorrhage of anus and rectum] Onset: 9 04-12-2018 Episodic Heart valve disorders (12 sources) Heart murmur; Translations: [Cardiac murmur, unspecified] Onset: 3 Episodic Immunizations and screening for infectious disease (5 sources) Encounter for immunization; Translations: [Need for pneumococcal 20-valent conjugate vaccination] Onset: 3 Episodic Malaise and fatigue (16 sources) Fatigue; Translations: [Other fatigue] Onset: 3 Episodic Nausea and vomiting (12 sources) Nausea with vomiting, unspecified; Translations: [Nausea and vomiting] Onset: 7 04-12-2018 Episodic Noninfectious gastroenteritis (11 sources) Chronic diarrhea of unknown origin ; Translations: [Noninfective gastroenteritis and colitis, unspecified] Onset: 5 01-29-2015 Episodic Nonspecific chest pain (15 sources) Chest pain; Translations: [Chest pain, unspecified] Onset: 3 Episodic Nutritional deficiencies (5 sources) Cobalamin deficiency; Translations: [Deficiency of other specified B group vitamins] Onset: 3 Episodic Other gastrointestinal disorders (2 sources) Diarrhea, unspecified; Translations: [DIARRHEA UNSPECIFIED] Onset: 7 Episodic Other gastrointestinal disorders (14 sources) Diarrhea; Translations: [Diarrhea, unspecified] Onset: 9 Episodic Other lower respiratory disease (13 sources) Dyspnea; Translations: [Shortness of breath] Onset: 3 Episodic Other nervous system disorders (12 sources) Paresthesia of left lower limb; Translations: [Paresthesia of skin] Onset: 3 Episodic Other nervous system disorders (1 source) Paresthesia of skin; Translations: [Left leg paresthesias] Onset: 3 Episodic Other non-traumatic joint disorders (1 source) Pain in right hip; Translations: [Right hip pain] Onset: 3 Episodic Other screening for suspected conditions (not mental disorders or infectious disease) (20 sources) Electrocardiogram abnormal; Translations: [Abnormal electrocardiogram [ECG] [EKG]] Onset: 3 Episodic Residual codes; unclassified (14 sources) Tobacco use and exposure - finding; Translations: [Tobacco use] Onset: 6 Episodic Residual codes; unclassified (2 sources) Tobacco use; Translations: [Tobacco use] Onset: 3 Episodic Spondylosis; intervertebral disc disorders; other back problems (20 sources) Chronic thoracic back pain; Translations: [Pain in thoracic spine] Onset: 7 Episodic Results Test Name Value Interpretation Reference Range Facil ity Vital Signs Date Time Vital Sign Value Performing Clinician Facility 12-21-2022 18:25-0400 Body temperature 99 [degF] Melvin Ruiz MANAGER IMAGING.MAIL SORTER Work Phone: [facility] 12-21-2022 18:25-0400 Body weight 67.22 kg Melvin Ruiz MANAGER IMAGING.MAIL SORTER Work Phone: [facility] 12-21-2022 18:25-0400 Diastolic blood pressure 72 mm[Hg] Melvin Ruiz MANAGER IMAGING.MAIL SORTER Work Phone: [facility] 12-21-2022 18:25-0400 Heart rate 92 /min Melvin Ruiz MANAGER IMAGING.MAIL SORTER Work Phone: [facility] 12-21-2022 18:25-0400 Respiratory rate 18 /min Melvin Ruiz MANAGER IMAGING.MAIL SORTER Work Phone: [facility] 12-21-2022 18:25-0400 SaO2% (BldA) [Mass fraction] 98 % Melvin Ruiz MANAGER IMAGING.MAIL SORTER Work Phone: [facility] 12-21-2022 18:25-0400 Systolic blood pressure 113 mm[Hg] Melvin Ruiz MANAGER IMAGING.MAIL SORTER Work Phone: [facility] 08-28-2022 10:25-0400 Body weight 71.49 kg Zheng Podlogar MANAGER IMAGING.MAIL SORTER Work Phone: [facility] 08-28-2022 10:25-0400 Diastolic blood pressure 78 mm[Hg] Zheng Podlogar MANAGER IMAGING.MAIL SORTER Work Phone: [facility] 08-28-2022 10:25-0400 Heart rate 116 /min Zheng Podlogar MANAGER IMAGING.MAIL SORTER Work Phone: [facility] 08-28-2022 10:25-0400 Respiratory rate 18 /min Zheng Podlogar MANAGER IMAGING.MAIL SORTER Work Phone: [facility] 08-28-2022 10:25-0400 SaO2% (BldA) [Mass fraction] 97 % Zheng Podlogquyen MANAGER IMAGING.MAIL SORTER Work Phone: [facility] 08-28-2022 10:25-0400 Systolic blood pressure 116 mm[Hg] Zheng Jacksonlogquyen MANAGER IMAGING.MAIL SORTER Work Phone: [facility] 08-23-2022 22:36-0400 Body temperature 98.24 [degF] DR YVONNE PITTMAN MD [facility] 08-23-2022 22:36-0400 Diastolic Blood Pressure Non-Invasive [address] YVONNE PITTMAN MD [facility] 08-23-2022 22:36-0400 Heart rate 88 /min DR YVONNE PITTMAN MD [facility] 08-23-2022 22:36-0400 Respiratory rate 20 /min DR YVONNE PITTMAN MD [facility] 08-23-2022 22:36-0400 Systolic Blood Pressure Non-Invasive [address] YVONNE PITTMAN MD [facility] 08-23-2022 21:32-0400 Body height 175.[address] YVONNE PITTMAN MD [facility] 08-23-2022 21:32-0400 Body temperature 98.24 [degF] DR YVONNE PITTMAN MD [facility] 08-23-2022 21:32-0400 Body weight 68.[address] YVONNE PITTMNA MD [facility] 08-23-2022 21:32-0400 Diastolic Blood Pressure Non-Invasive [address] YVONNE PITTMAN MD [facility] 08-23-2022 21:32-0400 Heart rate 95 /min DR YVONNE PITTMAN MD [facility] 08-23-2022 21:32-0400 Respiratory rate 20 /min DR YVONNE PITTMAN MD [facility] 08-23-2022 21:32-0400 Systolic Blood Pressure Non-Invasive [address] YVONNE PITTMAN MD [facility] 07-18-2022 09:39-0400 Body temperature 98.2 [degF] Ugo Puga DO Work Phone: [facility] 07-18-2022 09:39-0400 Body weight 71.22 kg Ugo Puga DO Work Phone: [facility] 07-18-2022 09:39-0400 Diastolic blood pressure 88 mm[Hg] Ugo Puga DO Work Phone: [facility] 07-18-2022 09:39-0400 Heart rate 88 /min Ugo Puga DO Work Phone: [facility] 07-18-2022 09:39-0400 Respiratory rate 16 /min Ugo Puga DO Work Phone: [facility] 07-18-2022 09:39-0400 Systolic blood pressure 130 mm[Hg] Ugo Puga DO Work Phone: [facility] 05-20-2022 08:37-0500 Body temperature 98.4 [degF] Keli Athy PA-C Work Phone: [facility] 05-20-2022 08:37-0500 Body weight 71.94 kg Keli Athy PA-C Work Phone: [facility] 05-20-2022 08:37-0500 Diastolic blood pressure 82 mm[Hg] Keli Athy PA-C Work Phone: [facility] 05-20-2022 08:37-0500 Heart rate 111 /min Keli Athy PA-C Work Phone: [facility] 05-20-2022 08:37-0500 Respiratory rate 20 /min Keli Athy PA-C Work Phone: [facility] 05-20-2022 08:37-0500 SaO2% (BldA) [Mass fraction] 99 % Keli Athy PA-C Work Phone: [facility] 05-20-2022 08:37-0500 Systolic blood pressure 128 mm[Hg] Keli Athy PA-C Work Phone: [facility] 05-02-2022 07:51-0500 Body temperature 98.01 [degF] Ugo Puga DO Work Phone: [facility] 05-02-2022 07:51-0500 Body weight 68.95 kg Ugo Puga DO Work Phone: [facility] 05-02-2022 07:51-0500 Diastolic blood pressure 74 mm[Hg] Ugo Puga DO Work Phone: [facility] 05-02-2022 07:51-0500 Heart rate 86 /min Ugo Puga DO Work Phone: [facility] 05-02-2022 07:51-0500 Respiratory rate 16 /min Ugo Puga DO Work Phone: [facility] 05-02-2022 07:51-0500 Systolic blood pressure 126 mm[Hg] Ugo Puga DO Work Phone: [facility] 02-01-2021 18:03-0500 Body temperature 98.24 [degF] AAKASH SOLORIO MD [facility] 02-01-2021 18:03-0500 Diastolic blood pressure 92 mm[Hg] AAKASH SOLORIO MD [facility] 02-01-2021 18:03-0500 Heart rate 101 /min AAKASH OSLORIO MD [facility] 02-01-2021 18:03-0500 Respiratory rate 16 /min AAKASH SOLORIO MD [facility] 02-01-2021 18:03-0500 Systolic blood pressure 141 mm[Hg] AAKASH SOLORIO MD [facility] Encounters Encounter Date Encounter Type Care Provider Facility Start: 12-21-2022 End: 12-21-2022 ambulatory GUO PUGA Facility:[facility] Start: 12-21-2022 End: 12-21-2022 Office outpatient visit 25 minutes Melvin Ruiz APRN.MAIL SORTER Work Phone: [facility] Procedures Date Procedure Procedure Detail Performing Clinician Start: 06-06-2022 Ct abdomen w/o & w/c ontrast material Ugo Ward Puga DO Work Phone: Start: 05-09-2022 Cv strs tst xers&/or rx cont ecg trcg only Ugo Ward Puga DO Work Phone: Start: 05-09-2022 Us retroperitoneal r eal time w/image complete Ugo Ward Puga DO Work Phone: Start: 05-02-2022 Lipid 1996 panel - S raysa or Plasma Melvin Ruiz APRN.MAIL SORTER Work Phone: Gallbladder structur e (body structure) AAKASH SOLORIO MD Hernia of abdominal cavity (disorder) AAKASH SOLORIO MD Injury of hand (disorder) NAVI SUMMERS MD Plan of Treatment Date Care Activity Detail Author Start: 05-02-2027 Lipid 1996 panel - S raysa or Plasma Lipid Screening [facility] Start: 05-02-2027 LIPID SCREEN LIPID SCREEN [facility] Start: 04-20-2025 Urine microalbumin profile [facility] Start: 05-02-2023 COVID-19 VACCINE (#1) COVID-19 VACCI NE (#1) [facility] Immunizations Immunization Date Immunization Notes Care Provider Kim fuentes 05-02-2022 pneumococcal (PCV20) vaccine, 20 valent (PREVNAR 20) Ugo Perezrison DO Work Phone: [facility] Work Phone: 05-02-2022 pneumococcal Conjugate, unspecified formulation Ugo Puga DO Work Phone: [facility] Work Phone: 01-24-2018 influenza virus vaccine, unspecified formulation Melvin Ruiz APRN.[facility] Work Phone: [facility] 04-20-2015 tetanus toxoid, reduced diphtheria toxoid, and acellular pertussis vaccine, adsorbed [facility] Phone: [facility] Work Phone: 01-25-2005 Meningococcal, MCV4, unspecified conjugate formulation(groups A, C, Y and W-135) Ugo Puga DO Work Phone: [facility] Work Phone: 01-14-2005 tetanus and diphther ia toxoids, not adsorbed, for adult use Ugo Puga DO Work Phone: [facility] Work Phone: 06-28-1989 diphtheria, tetanus toxoids and acellular pertussis vaccine Ugo Puga DO Work Phone: [facility] Work Phone: 06-28-1989 poliovirus vaccine, inactivated Ugo Puga DO Work Phone: [facility] Work Phone: 01-25-1989 haemophilus influenz ae type b vaccine, HbOC conjugate Ugo Puga DO Work Phone: [facility] Work Phone: 11-30-1988 diphtheria, tetanus toxoids and acellular pertussis vaccine Ugo Puga DO Work Phone: [facility] Work Phone: 08-24-1988 diphtheria, tetanus toxoids and acellular pertussis vaccine Ugo Puga DO Work Phone: [facility] Work Phone: 08-24-1988 poliovirus vaccine, inactivated Ugo Puga DO Work Phone: [facility] Work Phone: Payers Date Payer Category Payer Medicaid [id number] 2022 Medicaid [id number] 1985 Unknown [id number] Unknown [id number] Social History Date Type Detail Facility Start: 02-01-2021 Heavy tobacco smoker (finding) [facility] Sex Assigned At [facility] Start: 05-02-2022 [facility] Work Phone: History of tobacco use Cigarette Smoker C [facility] Work Phone: Start: 05-02-2022 End: 05-20-2022 Cigarettes smoked current (pack per day) - Reported 0.5 [facility] Start: 05-02-2022 Tobacco use and exposure Smoke less tobacco non-user [facility] Work Phone: Start: 05-02-2022 End: 05-20-2022 Alcohol intake Current drinker of alcohol (finding) [facility] Start: 05-02-2022 Tobacco Comment less than 1/2 a pack [facility] Start: 04-12-2018 Alcohol Comment rarely - usual ly a beer [facility] Start: 1985 Sex Assigned At Not on file C [facility] Start: 07-18-2022 History SDOH Alcohol Frequency 2 [facility] Start: 07-18-2022 History SDOH Alcohol Std Drinks 1 [facility] Start: 07-18-2022 History SDOH Social Connections Phone 5 [facility] Start: 07-18-2022 History SDOH Social Connections Get Together 98 [facility] Start: 07-18-2022 History SDOH Social Connections Living 8 [facility] Start: 05-02-2022 End: 07-18-2022 Social connection and isolation panel [facility] How often do you get together with friends or relatives? Patient refused [facility] Do you belong to any clubs or organizations such as holiness groups, unions, fraternal or athletic groups, or school groups? No [facility] Are you now , , , , never or living with a partner? Living with partner [facility] How often to you hav e a drink containing alcohol? Monthly or less [facility] How many standard dr inks containing alcohol do you have on a typical day? 1 or 2 [facility] How often do you hav e 6 or more drinks on 1 occasion? Never [facility] (I/We) worried wheth er (my/our) food would run out before (I/we) got money to buy more. DK or Refused [facility] Functional Status Date Assessment Result Facility 08-23-2022 Functional Status Independent [facility] 08-23-2022 Functional Status Room check performed [facility] Mental Status Date Assessment Result Facility 08-23-2022 Mental Status Orientation Oriented x 4 [facility]-23-2022 [facility] Notes 02-01-2021 to 12-21-2022 Melvin Ruiz APRN.CNP - 12/21/2022 6:32 PM Gaye Seo APRN.CNP - 08/28/2022 10:12 AM Allen Puga DO - 07/20/2022 9:17 AM Marin Otero PA-C - 05/20/2022 8:50 AM EST Note Date & Type Note Facility 12-21-2022 Note HNO ID: [id number] Author: Melvin Ruiz APRN.PAU Service: ? Author Type: Nurse Practitioner Type: Progress Notes Filed: 12/21/2022 6:44 PM Note Text: Subjective HPI Nontoxic-appearing male presents urgent care chief complaint dental pain. Duration of symptoms 2 days. Associated symptoms dental pain swelling of right lower jaw. Has not used any OTC medications today. History of dental infections this feels similar. Denies any dental trauma. Denies any trismus difficulty swallowing industries decreased range of motion neck pain of floor of mouth. Overall feels well. Is reaching out to dentist in the morning for reevaluation. Denies any fever body aches chills productive cough chest pain shortness of breath pleuritic pain hemoptysis nausea vomiting abdominal pain change in bowel or bladder habits. Past medical history prescription medication use and allergies reviewed. .Patient presents with: Dental Problem: Mouth pain front tooth lower, swelling x 2 days PAST MEDICAL HISTORY Diagnosis Date Abdominal pain Borderline diabetic Lactose intolerance in adult 06/09/2015 positive lactose tolerance test PAST SURGICAL HISTORY Procedure Laterality Date CHOLECYSTECTOMY 08/17/2016 COLONOSCOPY FLX DX W/COLLJ SPEC WHEN PFRMD 05/01/2018 Colonoscopy ESOPHAGOGASTRODUODENOSCOPY TRANSORAL DIAGNOSTIC 05/01/2018 EGD FOOT Bilateral hammer toes HAND SURGERY HX LX REPAIR RECURRENT VENTRAL HERNIA 04/24/2017 ventral hernia repair [place] ALLERGIES Oxycodone MEDICATIONS naproxen (NAPROSYN) 500 mg tabletTake 1 tablet by mouth twice daily with meals. Take with food.Disp: 60 tabletRfl: 0 buPROPion XL (WELLBUTRIN XL) 150 mg 24 hr tabletTake 1 tablet by mouth once daily. In the morning, for tobacco use cessationDisp: 30 tabletRfl: 1 lidocaine (LIDODERM) 5 %APPLY 1 (ONE) PATCH TO THE SKIN EVERY 12 HOURSDisp: Rfl: (Patient not taking: Reported on 12/21/2022) cyclobenzaprine (FLEXERIL) 10 mg tabletTake 10 mg by mouth three times daily.Disp: Rfl: (Patient not taking: Reported on 12/21/2022) FAMILY HISTORY Problem Relation Age of Onset Breast Cancer Paternal Grandmother Diabetes Mother Diabetes Maternal Grandmother Cancer Maternal Grandmother colon cancer No Known Problems Son No Known Problems Daughter No Known Problems Daughter No Known Problems Sister No Known Problems Brother No Known Problems Sister No Known Problems Sister Social History Tobacco Use Smoking status: Every Day Packs/day: 0.50 Years: 12.00 Additional pack years: 0.00 Total pack years: 6.00 Types: Cigarettes Smokeless tobacco: Never Tobacco comments: less than 1/2 a pack Substance Use Topics Alcohol use: Yes Comment: rarely - usually a beer Drug use: Yes Types: Marijuana Comment: more than once daily BP 113/72 Pulse 92 Temp 37.2 ?C (99 ?F) Resp 18 Wt 67.2 kg (148 lb 3.2 oz) SpO2 98% BMI 21.89 kg/m? Review of Systems Constitutional: Negative for chills, fever and malaise/fatigue. HENT: Negative for congestion, ear discharge, ear pain, sinus pain and sore throat. Eyes: Negative for blurred vision, pain, discharge and redness. Respiratory: Negative for cough, hemoptysis, sputum production, shortness of breath, wheezing and stridor. Cardiovascular: Negative for chest pain. Gastrointestinal: Negative for abdominal pain, diarrhea, nausea and vomiting. Musculoskeletal: Negative for myalgias. Skin: Negative for itching and rash. Neurological: Negative for dizziness and headaches. Objective Physical Exam Constitutional: General: He is not in acute distress. Appearance: He is not toxic-appearing. HENT: Head: Normocephalic. Jaw: No trismus, tenderness, swelling or pain on movement. Nose: Nose normal. Mouth/Throat: Lips: [place]. Mouth: Mucous membranes are moist. Dentition: Abnormal dentition. Dental tenderness, gingival swelling and dental caries present. No dental abscesses. Pharynx: Oropharynx is clear. Uvula midline. No pharyngeal swelling, oropharyngeal exudate, posterior oropharyngeal erythema or uvula swelling. Eyes: Pupils: Pupils are equal, round, and reactive to light. Cardiovascular: Rate and Rhythm: Normal rate. Pulmonary: Effort: Pulmonary effort is normal. No respiratory distress. Musculoskeletal: Cervical back: Normal range of motion. Skin: General: Skin is warm and dry. Neurological: General: No focal deficit present. Mental Status: He is alert. ASSESSMENT/PLAN: 1. Dental infection - ICD9: 522.4, ICD10: K04.7 Diagnosed with dental infection. Placed on amoxicillin. Red flags prompt reevaluation discussed. Follow-up with dentist 2 to 3 days reevaluation. Patient was educated on supportive therapies. Patient will follow up with primary care provider as needed. Patient was instructed to immediately proceed to emergency room for any new, worsening, or symptoms lasting longer than anticipated. The patient' (more content not included)... [facility] 12-21-2022 History of Present illness Narrative Images from the original note were not included. Subjective HPI Nontoxic-appearing male presents urgent care chief complaint dental pain. Duration of symptoms 2 days. Associated symptoms dental pain swelling of right lower jaw. Has not used any OTC medications today. History of dental infections this feels similar. Denies any dental trauma. Denies any trismus difficulty swallowing industries decreased range of motion neck pain of floor of mouth. Overall feels well. Is reaching out to dentist in the morning for reevaluation. Denies any fever body aches chills productive cough chest pain shortness of breath pleuritic pain hemoptysis nausea vomiting abdominal pain change in bowel or bladder habits. Past medical history prescription medication use and allergies reviewed. .Patient presents with: Dental Problem: Mouth pain front tooth lower, swelling x 2 days PAST MEDICAL HISTORY Diagnosis Date Abdominal pain Borderline diabetic Lactose intolerance in adult 06/09/2015 positive lactose tolerance test PAST SURGICAL HISTORY Procedure Laterality Date CHOLECYSTECTOMY 08/17/2016 COLONOSCOPY FLX DX W/COLLJ SPEC WHEN PFRMD 05/01/2018 Colonoscopy ESOPHAGOGASTRODUODENOSCOPY TRANSORAL DIAGNOSTIC 05/01/2018 EGD FOOT Bilateral hammer toes HAND SURGERY HX LX REPAIR RECURRENT VENTRAL HERNIA 04/24/2017 ventral hernia repair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 occur. What are the possible side effects of cyclobenzaprine? Get emergency medical help if you have signs of an allergic reaction: hives; difficult breathing; swelling of your face, lips, tongue, or throat. Stop using cyclobenzaprine and call your doctor at once if you have: fast or irregular heartbeats; chest pain or pressure, pain spreading to your jaw or shoulder; or sudden numbness or weakness (especially on one side of the body), slurred speech, balance problems. Seek medical attention right away if you have symptoms of serotonin syndrome, such as: agitation, hallucinations, fever, sweating, shivering, fast heart rate, muscle stiffness, twitching, loss of coordination, nausea, vomiting, or diarrhea. Serious side effects may be more likely in older adults. Common side effects may include: drowsiness, tiredness; headache, dizziness; dry mouth; or upset stomach, nausea, constipation. This is not a complete list of side effects and others may occur. Call your doctor for medical advice about side effects. You may report side effects to FDA at 4-084-PIC-7819. What other drugs will affect cyclobenzaprine? Using cyclobenzaprine with other drugs that make you drowsy can worsen this effect. Ask your doctor before using opioid medication, a sleeping pill, a muscle relaxer, or medicine for anxiety or seizures. Tell your doctor about all your other medicines, especially: bupropion (Zyban, for smoking cessation); meperidine; tramadol; verapamil; cold or allergy medicine that contains an antihistamine (Benadryl and others); medicine to treat Parkinson's disease; medicine to treat excess stomach acid, stomach ulcer, motion sickness, or irritable bowel syndrome; medicine to treat overactive bladder; or bronchodilator asthma medication. This list is not complete. Other drugs may affect cyclobenzaprine, including prescription and uytq-dgt-plvemjk medicines, vitamins, and herbal products. Not all possible drug interactions are listed here. Where can I get more information? Your pharmacist can provide more information about cyclobenzaprine. Remember, keep this and all other medicines out of the reach of children, never share your medicines with others, and use this medication only for the indication prescribed. Every effort has been made to ensure that the information provided by [employer]') is accurate, up-to-date, and complete, but no guarantee is made to that effect. Drug information contained herein may be time sensitive. [employer] information has been compiled for use by healthcare practitioners and consumers in the [place] and therefore [employer] does not warrant that uses outside of the [place] are appropriate, unless specifically indicated otherwise. [employer]'s drug information does not endorse drugs, diagnose patients or recommend therapy. [facility]'s drug information is an informational resource designed to assist licensed healthcare practitioners in caring for their patients and/or to serve consumers viewing this service as a supplement to, and not a substitute for, the expertise, skill, knowledge and judgment of healthcare practitioners. The absence of a warning for a given drug or drug combination in no way should be construed to indicate that the drug or drug combination is safe, effective or appropriate for any given patient. [facility] does not assume any responsibility for any aspect of healthcare administered with the aid of information [facility] provides. The information contained herein is not intended to cover all possible uses, directions, precautions, warnings, drug interactions, allergic reactions, or adverse effects. If you have questions about the drugs you are taking, check with your doctor, nurse or pharmacist. Copyright 8544-0806 [facility]. Version: 5.01. Revision Date: 12/19/2017. lidocaine viscous (LYE vargas peterson VIS kus) Lidocaine Viscous, LidoRxKit, LTA II Kit What is the most important information I should know about lidocaine viscous? Do not use this medicine to treat teething pain in a baby. can occur from the use of this medicine in very young children. Use the smallest amount of this medicine needed to numb or relieve pain. Do not use large amounts of lidocaine viscous. An overdose of numbing medication can cause fatal side effects if too much of the medicine is absorbed through your gums and into your blood. What is lidocaine viscous? Lidocaine is a local anesthetic (numbing medication). It works by blocking nerve signals in your body. Lidocaine viscous is used to treat sores inside the mouth, during dental procedures to numb the gums, and to numb the mouth and throat before a surgery or medical procedure. Lidocaine viscous should not be used to treat teething pain in infants. Lidocaine viscous may also be used for purposes not listed in this medication guide. What should I discuss with my healthcare provider before using lidocaine viscous? An overdose of numbing medication can cause fatal side effects if too much of the medicine is absorbed through your gums and into your blood. This can happen if you apply more than the recommended dose. Do not use lidocaine viscous to treat teething pain in a baby. A baby could accidentally swallow this medicine if it is placed in the mouth. Heart problems, seizures, severe brain injury, and can occur from the use of this medicine in very young children. Always ask a doctor before using any medicine to treat your baby's teething pain. You should not use lidocaine viscous if you are allergic to any type of numbing medicine. Tell your doctor if you have ever had: liver disease; a serious heart condition such as 'AV block'; an allergy to any drugs; or broken, swollen, or damaged skin or gum tissue. Ask a doctor before using this medicine if you are or breast-feeding. Older adults may be more sensitive to the effects of this medicine. How should I use lidocaine viscous? Follow all directions on your prescription label and read all medication guides or instruction sheets. Use the medicine exactly as directed. Improper use of lidocaine viscous may result in . Read and carefully follow any Instructions for Use provided with your medicine. Ask your doctor or pharmacist if you do not understand these instructions. Lidocaine viscous may be applied with your finger tips or a cotton swab, or with the applicator provided with the medicine. Use the smallest amount of this medication needed to numb or relieve pain. Do not use large amounts of lidocaine viscous. Avoid swallowing the medicine while applying it to your gums or the inside of your mouth. Your body may absorb more of this medicine if: you use too much; you swallow the medicine; you apply the medicine to gum tissue that is cut or irritated; or you apply heat to a treated area. Avoid eating within 1 hour after using this medicine inside your mouth or throat. You may have trouble swallowing and choking could occur, especially in a child. Store at room temperature away from moisture and heat. What happens if I miss a dose? Since lidocaine topical is used when needed, you may not be on a dosing schedule. Skip any missed dose if it's almost time for your next dose. What happens if I overdose? Seek emergency medical attention or call the Poison Help line at if anyone has accidentally swallowed the medication. An overdose of numbing medicine can cause fatal side effects if too much of the medicine is absorbed through your gums and into your blood. Overdose symptoms may include uneven heartbeats, seizure (convulsions), slowed breathing, coma, or respiratory failure (breathing stops). Lidocaine applied to the gums is not likely to cause an overdose unless you apply more than the recommended dose. What should I avoid while using lidocaine viscous? Avoid eating, chewing gum, or drinking hot liquids until the feeling in your mouth has returned completely. Chewing while your mouth is numb could result in a bite injury to your tongue, lips, or inside of your cheek. Do not allow this medicine to come into contact with your eyes. If it does, rinse with water. Avoid using other medications on the areas you treat with lidocaine viscous unless your doctor tells you to. What are the possible side effects of lidocaine viscous? Get emergency medical help if you have signs of an allergic reaction: hives; difficulty breathing; swelling of your face, lips, tongue, or throat. Stop using lidocaine viscous and call your doctor at once if you have: drowsiness, depression, confusion, feeling nervous or restless; weakness, slow breathing, slow heart rate; a light-headed feeling, like you might pass out; numbness or cold feeling; vomiting; or blurred vision. Common side effects may include: unusual or unpleasant taste in the mouth; or numbness in places where the medicine is accidentally applied. This is not a complete list of side effects and others may occur. Call your doctor for medical advice about side effects. You may report side effects to FDA at 4-245-ZXH-0013. What other drugs will affect lidocaine viscous? Lidocaine viscous is not likely to be affected by other drugs you use. But many drugs can interact with each other. Tell each of your health care providers about all medicines you use, including prescription and avep-wzu-balipmj medicines, vitamins, and herbal products. Where can I get more information? Your pharmacist can provide more information about lidocaine viscous. Remember, keep this and all other medicines out of the reach of children, never share your medicines with others, and use this medication only for the indication prescribed. Every effort has been made to ensure that the information provided by [employer] is accurate, up-to-date, and complete, but no guarantee is made to that effect. Drug information contained herein may be time sensitive. [employer] information has been compiled for use by healthcare practitioners and consumers in the [place] and therefore [employer] does not warrant that uses outside of the [place] are appropriate, unless specifically indicated otherwise. [employer]'s drug information does not endorse drugs, diagnose patients or recommend therapy. [employer] drug information is an informational resource designed to assist licensed healthcare practitioners in caring for their patients and/or to serve consumers viewing this service as a supplement to, and not a substitute for, the expertise, skill, knowledge and judgment of healthcare practitioners. The absence of a warning for a given drug or drug combination in no way should be construed to indicate that the drug or drug combination is safe, effective or appropriate for any given patient. [facility] does not assume any responsibility for any aspect of healthcare administered with the aid of information [facility] provides. The information contained herein is not intended to cover all possible uses, directions, precautions, warnings, drug interactions, allergic reactions, or adverse effects. If you have questions about the drugs you are taking, check with your doctor, nurse or pharmacist. Copyright 7855-5447 [facility]. Version: 3.01. Revision Date: 09/05/2017. Education Materials Chest Contusion A contusion is a bruise to the skin, muscle, or ribs. It may cause pain, tenderness, and swelling. It may turn the skin purple until it heals. Contusions take a few days to a few weeks to heal. Home care Follow these guidelines when caring for yourself at home: Rest. Don t do any heavy lifting or strenuous activity. Don t do any activity that causes pain. Put an ice pack on the injured area. Do this for 20 minutes every 1 to 2 hours the first day. You can make an ice pack by wrapping a plastic bag of ice cubes in a thin towel. Continue to use the ice pack 3 to 4 times a day for the next 2 days. Then use the ice pack as needed to ease pain and swelling. After 1 to 2 days you may put a warm compress on the area. Do this for 10 minutes several times a day. A warm compress is a clean cloth that s damp with warm water. Hold a pillow to the affected area when you cough. This will help ease pain. You may use qjgz-eym-brdcgsf pain medicine such as acetaminophen or ibuprofen to control pain, unless another pain medicine was prescribed. If you have chronic liver or kidney disease, talk with your healthcare provider before using these medicines. Also talk with your provider if you ve had a stomach ulcer or gastrointestinal bleeding. Follow-up care Follow up with your healthcare provider, or as advised. When to seek medical advice Call your healthcare provider right away if any of these occur: New abdominal pain or abdominal pain that gets worse Fever of 100.4 F (38 C) or higher, or as directed by your healthcare provider Call 911 Call 911 if any of these occur: Dizziness, weakness, or fainting Shortness of breath, trouble breathing, or breathing fast Chest pain gets worse when you breathe Severe pain that comes on suddenly or lasts more than an hour 3411-6648 [employer]. [address] [place], [place] [id number]. All rights reserved. This information is not intended as a substitute for professional medical care. Always follow your healthcare professional's instructions. Hip Contusion A contusion is another word for a bruise. It happens when small blood vessels break open and leak blood into the nearby area. A hip contusion can result from a bump, hit, or fall. Symptoms of a contusion often include changes in skin color (bruising), swelling, and pain. It may take several hours for a deep bruise to show up. If the injury is severe, you may need an X-ray to check for broken bones. Swelling should decrease in a few days. Bruising and pain may take several weeks to go away. Home care Unless another medicine was prescribed, you may take acetaminophen, ibuprofen, or naproxen to help relieve pain and swelling. If needed, stronger pain medicines may be prescribed. Take all medicines as directed. Ice the bruised area to help reduce pain and swelling. Wrap a cold source (ice pack or ice cubes in a plastic bag) in a thin towel. Apply the cold source to the bruised area for 20 minutes every 1 to 2 hours the first day. Continue this 3 to 4 times a day until the pain and swelling goes away. If walking causes pain, use crutches or a walker until you can walk without pain. These items can be rented at most pharmacies and orthopedic supply stores. If your injury is keeping you from moving around or caring for yourself properly, you may qualify for services such as home healthcare. Check with your doctor and insurance company to see if this type of care is covered. Follow-up Follow up with your healthcare provider as advised. When to seek medical advice Call your healthcare provider right away if any of these occur: Increased pain, bruising, or swelling near the injured area Decreased ability to bear weight on the injured side Pain or swelling develops below the knee Chest pain or shortness of breath [id number] [employer]. [address] [place] [address], [place] [address]. All rights reserved. This information is not intended as a substitute for professional medical care. Always follow your healthcare professional's instructions. Additional Information VACCINATE! IT SAVES LIVES! Members of the community who have not yet received the COVID-19 vaccine and would like to receive it can visit one of [facility] vaccine clinics. There are many vaccine clinic locations within the [facility]. For locations and available times, please visit [email or web address] It is important to note that some COVID mobile vaccine clinics are held outdoors and may be canceled in rainy or stormy conditions. To learn more about pediatric vaccinations (ages 5-11), we invite you to visit the [employer] [facility] webpage. [email or web address] [email or web address]-Enyxd-Fupgnzlovss-Freque yetz-Idtbi-[email or web address].html To learn more about the COVID-19 vaccine, we invite you to visit the CDC website for a list of frequently asked questions. https://www.cdc.gov/coronavirus/2 019-ncov/vaccines/faq.html [facility] Patient Portal Access Instructions: Stay connected with your healthcare team and access your personal medical information anytime with the [facility] Patient Portal. If you would like a full copy of your medical records please contact the [facility] Medical Records Department Sunday through Sunday between 8a.m. and 4:30p.m. Please follow the directions below to access the portal: 1.Access the email account you provided upon registration to the hospital.2.Look for an invitation email from [facility].3.Open the email and access the invitation link: Accept Invitation to [facility]4.Fill in the required scott to create your account. Sign into [email or web address] with your username and password that you created in the above steps to stay up to date. You can then view a summary of results, a summary of your visits, and the ability to download your summaries to your computer or send the information securely to a physician. Remember that your healthcare information is confidential, so carefully consider who you will allow to register on the [employer] Patient Portal for access to your information. You can also access the [employer] Patient Portal on the [employer] darryl. Simply click on Health Records under Health Data and then click on the s[employer] logo. HOW TO SAFELY DISPOSE OF PRESCRIPTION MEDICATIONS Please use one of the following methods to safely dispose of your unused medications. 1.Use a drug disposal kit: the drug disposal pouch allows you to safely discard your old and unused drugs. Ask your nurse to give you one when you are discharged.2.Visit a local take-back location: Many local pharmacies and police departments have programs that collect old and unwanted prescription drugs. Call your local pharmacy or go to http://Ontodia.Chemayi/9Y8Ag3p to find one close to you.3.Make use of household items: Use cat litter or old coffee grounds to dispose medications if other options are not available. Mix your drugs with these household products, seal them in an airtight container and throw it into the garbage. Call [facility]: [phone] to be sure your drugs can be disposed of in this way. Some medicines may require a different approach.4.Never flush your medications down the toilet. IF YOU HAVE BEEN PRESCRIBED AN OPIOIDS FOR PAIN If you have been prescribed an opioid (such as hydrocodone, oxycodone or morphine), it is critical to understand the possible side effects and risks of opioid pain medications. Even when taken as directed, opioids can have several side effects including: Tolerance, meaning you might need to take more of a medication for the same pain relief. Nausea, vomiting and/or constipation. Sleepiness, dizziness, dry mouth, confusion, depression or itching. Physical dependence, meaning you have withdrawal symptoms when a medication is stopped ? this can develop within a few days. KNOW YOUR RESPONSIBILITIES It is important to know exactly how much and how often to take the opioid pain medications you are prescribed. Never take opioids in higher amounts or more often than prescribed. Do not combine opioids with alcohol or other drugs that cause drowsiness, such as benzodiazepines, also known as benzos, including diazepam and alprazolam, muscle relaxants or sleep aids. Never sell or share prescription opioids. This is illegal. Store opioids in a secure place and out of reach of others (including children, family, friends and visitors). The last page(s) of this document has been signed and retained as a CHART COPY Signatures Patient Education Materials Chest Wall Contusion Hip Contusion Medication Leaflets cyclobenzaprine, lidocaine viscous My discharge plan and instructions have been reviewed and explained to me and I,KIAH CHATMAN understand my current condition and have read and understand these discharge instructions. I have received a written copy of the plan/instructions. If I have questions, I am aware that I should contact my doctor. 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 Multiplanar reformatted images are provided for review. Automated exposure control, iterative reconstruction, and/or weight based adjustment of the mA/kV was utilized to reduce the radiation dose to as low as reasonably achievable. COMPARISON: Ultrasound the abdomen July 24, 2016 HISTORY: ORDERING SYSTEM PROVIDED HISTORY: Reason for Exam: pain; trauma patient FINDINGS: Lower Chest: Hyperinflation. Organs: Gallbladder is not definitively identified. The liver, spleen, pancreas and adrenal glands are unremarkable. 0.1 cm nonobstructing nephrolithiasis in the right mid kidney. No hydronephrosis or hydroureter. GI/Bowel: No bowel obstruction, pneumoperitoneum, or ascites. Noninflamed appendix. Pelvis: No bladder wall thickening. Incidental ureteral versus bladder diverticulum on the right. Prostate is normal in size. Peritoneum/Retroperitoneum: Nonaneurysmal abdominal aorta. No enlarged lymph nodes. Bones/Soft Tissues: No acute osseous abnormality. IMPRESSION: No acute traumatic findings. Interpreted by: Maurice Colorado Preliminary Report By: Maurice Colorado Electronically signed By Maurice Colorado Dictated Date: 08/23/2022 10:20:15 PM Prelim Date: 08/23/2022 10:25:20 PM Sign Date: 08/23/2022 10:25:20 PM Ordering Provider: [facility] 08-23-2022 Note ORIGINAL EXAMINATION: TWO XRAY VIEWS OF THE CHEST 08/23/2022 9:55 pm COMPARISON: Limited evaluation of the lung bases on CT abdomen pelvis performed same day. HISTORY: ORDERING SYSTEM PROVIDED HISTORY: Reason for Exam: Pain; Trauma patient FINDINGS: Cardiomediastinal silhouette is normal in size. Hyperinflation bilaterally. Costophrenic angles are sharp. No pleural effusion, pneumothorax or focal consolidation. Osseous structures unremarkable. IMPRESSION: No acute traumatic findings by radiograph. Interpreted by: Maurice Colorado Preliminary Report By: Maurice Colorado Electronically signed By Maurice Colorado Dictated Date: 08/23/2022 10:16:40 PM Prelim Date: 08/23/2022 10:17:30 PM Sign Date: 08/23/2022 10:17:30 PM Ordering Provider: YVONNE PITTMAN [facility] 08-23-2022 Note ORIGINAL EXAMINATION: CT OF THE ABDOMEN AND PELVIS WITHOUT CONTRAST 08/23/2022 10:02 pm TECHNIQUE: CT of the abdomen and pelvis was performed without the administration of intravenous contrast. Multiplanar reformatted images are provided for review. Automated exposure control, iterative reconstruction, and/or weight based adjustment of the mA/kV was utilized to reduce the radiation dose to as low as reasonably achievable. COMPARISON: Ultrasound the abdomen July 24, 2016 HISTORY: ORDERING SYSTEM PROVIDED HISTORY: Reason for Exam: pain; trauma patient FINDINGS: Lower Chest: Hyperinflation. Organs: Gallbladder is not definitively identified. The liver, spleen, pancreas and adrenal glands are unremarkable. 0.1 cm nonobstructing nephrolithiasis in the right mid kidney. No hydronephrosis or hydroureter. GI/Bowel: No bowel obstruction, pneumoperitoneum, or ascites. Noninflamed appendix. Pelvis: No bladder wall thickening. Incidental ureteral versus bladder diverticulum on the right. Prostate is normal in size. Peritoneum/Retroperitoneum: Nonaneurysmal abdominal aorta. No enlarged lymph nodes. Bones/Soft Tissues: No acute osseous abnormality. IMPRESSION: No acute traumatic findings. Interpreted by: Maurice Colorado Preliminary Report By: Maurice Colorado Electronically signed By Maurice Colorado Dictated Date: 08/23/2022 10:20:15 PM Prelim Date: 08/23/2022 10:25:20 PM Sign Date: 08/23/2022 10:25:20 PM Ordering Provider: [facility] 08-23-2022 Note ORIGINAL EXAMINATION: TWO XRAY VIEWS OF THE CHEST 08/23/2022 9:55 pm COMPARISON: Limited evaluation of the lung bases on CT abdomen pelvis performed same day. HISTORY: ORDERING SYSTEM PROVIDED HISTORY: Reason for Exam: Pain; Trauma patient FINDINGS: Cardiomediastinal silhouette is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
[2023-03-25 10:18] LABS: D-Dimer Quantitative (DVT/PE) < 0.27 FEU/ug/m (0.27-0.49)
[2023-03-25 10:21] LABS: Anion Gap 4 (5-15); BUN 12 mg/dL (7-18); BUN/Creat Ratio 14.2 RATIO (10-20); Calcium,Total 9.7 mg/dL (8.5-10.1); Chloride 108 mmol/L (98-107); Creatinine, Serum 0.85 mg/dL (0.70-1.30); EST Glomerular Filtration Rate 109 mL/min (>60); Est Glom Filt Rate - Afr Amer 131 mL/min (>60); Estimated Creatinine Clearance 116.01 ml/min; Glucose 107 mg/dL (74-106); Potassium 4.2 mmol/L (3.5-5.1); Sodium Level 139 mmol/L (136-145); Troponin-I HS 4 pg/mL (3.0-78.0)
[2023-03-25 10:33] VITALS: RESP 16
== END 2023-03-25 10:57 | disposition home or self-care (01) ==
PROVIDERS: Emergency Provider Emergency Medicine; PCP Student in an Organized Health Care Education/Training Program; Visit Provider Emergency Medicine
DX: S29.011A Strain of muscle and tendon of front wall of thorax, initial encounter (principal); F17.210 Nicotine dependence, cigarettes, uncomplicated; X58.XXXA Exposure to other specified factors, initial encounter
CPT/HCPCS: 71045; 80048; 84484; 85025; 85379; 93005; 99284; A4216

== ENCOUNTER 2023-09-24 14:30 | Observation (INO) | payer SELFPAY ==
[2023-09-24] VITALS (8 sets, daily range): BP systolic 96–151; BP diastolic 61–120; PULSE 104–156; RESP 17–27; TEMP 36.6–37.1; O2SAT 93–99; BMI 24.3; BMI 23.1
--- NOTE | 2023-09-24 14:46 | EKG12_ITS ---
Test Reason : Blood Pressure : / mmHG Vent. Rate : 145 BPM Atrial Rate : 145 BPM P-R Int : 120 ms QRS Dur : 098 ms QT Int : 336 ms P-R-T Axes : 000 079 071 degrees QTc Int : 521 ms Critical Test Result: High HR Supraventricular tachycardia probably- Sinus tachycardia Nonspecific T wave changes c/w metabolic/electrolyte abnormality Abnormal ECG Confirmed by Kevin Morgan ([id number]), make up editor CAROL RIVERA ([id number]) on 09/25/2023 8:27:10 AM Referred By: Confirmed By:Kevin Morgan
--- NOTE | 2023-09-24 14:47 | EX.ED.DYSGE1 ---
HPI History of Present Illness Chief Complaint: Palpitations Detail of Chief Complaint: Racing heart Informant: patient Narrative Narrative: Patient presents via EMS with complaint of heart racing that started about half an hour ago. Patient states that he was using methamphetamine this morning at 4 AM which he has not done before. Patient states he really did not feel anything after that. He is also been smoking marijuana heavily throughout the day. Patient half an hour ago started feeling like his heart was racing and he thought he was having a heart attack so he called EMS. Patient apparently had heart rate over 200 and was given adenosine. Patient feels a little numb and tingling in his hands. Patient states that he does have history of anxiety. Denies using cocaine. Denies alcohol use. [facility] Medical History (Updated 09/24/23 @ 15:[address] Wayne Ybarra DO) Substance abuse Home Medications ?Medication ?Instructions ?Recorded ?Last Taken ?Type NK 09/24/23 Unknown History Allergy/AdvReac Type Severity Reaction Status Date / Time oxycodone AdvReac I BECOME Verified 09/24/23 14:31 VIOLENT Surgical History H/O hernia repair History of cholecystectomy Social History Smoking Status: Current every day smoker tobacco type: cigarettes ROS ROS ED Review of Systems ROS Unobtainable: other Constitutional Constitutional ED: Reports lethargy; Denies chills, fever(s), sweats or weight loss Eyes Eyes: Denies blurry vision, change in vision or diplopia ENT ENT ED: Denies rhinorrhea or sore throat Cardiovascular Cardiovascular: Reports chest pain and racing heartbeat; Denies orthopnea Respiratory/Chest Respiratory/Chest: Denies cough, dyspnea, dyspnea on exertion, orthopnea or sputum Gastrointestinal Gastrointestinal: Denies abdominal pain, diarrhea, nausea or vomiting Genitourinary Genitourinary ED: Denies dysuria, hematuria or urinary frequency Musculoskeletal Musculoskeletal: Denies arthralgias, back pain, myalgias or neck pain Integumentary Denies abscess, Abrasions or rash Neurologic Neurologic: Reports paresthesias; Denies headache(s) or weakness Psychiatric Psychiatric: Denies anxiety, depression or suicidal thoughts Endocrine Endocrinology: Denies polydipsia, polyphagia or polyuria Hematologic/Lymphatic Hematologic/Lymphatic: Denies easy bleeding, easy bruising or lymphadenopathy Allergic/Immunologic Allergic/Immunologic ED: Denies mouth swelling, tongue swelling or urticaria EXAM Physical Exam Const Vital Signs: 09/24/23 14:32 09/24/23 15:30 09/24/23 16:00 Temperature 98.1 F Temperature Source Temporal Pulse Rate 156 H 110 H 104 H Respiratory Rate 27 H 17 22 H Blood Pressure 117/93 H 146/85 H 144/92 H Blood Pressure Mean 101 101 109 Pulse Ox 93 99 99 Oxygen Delivery Method Nasal Cannula Oxygen Flow Rate (L/min) 2 09/24/23 16:00 09/24/23 16:20 09/24/23 16:45 Temperature 98.3 F Temperature Source Pulse Rate 104 H 124 H 143 H Respiratory Rate 22 H 20 H 22 H Blood Pressure 144/92 H 151/120 H 128/87 H Blood Pressure Mean 104 130 98 Pulse Ox 99 97 Oxygen Delivery Method Oxygen Flow Rate (L/min) 09/24/23 17:00 Temperature Temperature Source Pulse Rate 121 H Respiratory Rate 22 H Blood Pressure 113/73 Blood Pressure Mean 84 Pulse Ox Oxygen Delivery Method Oxygen Flow Rate (L/min) Positive well nourished and well developed General Appearance ED: well developed and NAD HEENT Reports TM's clear and moist mucous membranes normocephalic and atraumatic; Negative for trauma or tenderness Tympanic Membrane ED: Yes TM's clear Eyes PERRL and EOMs intact bilaterally General Eye ED: Negative for pale conjunctiva or scleral icterus Neck no lymphadenopathy, supple and no JVD General: Negative for tenderness Chest Wall inspection of chest normal and palpation of chest normal Chest: Negative for tenderness Resp normal respiratory effort and clear to auscultation bilaterally Effort and Inspection: Negative for respiratory distress or pain with movement Auscultation: Negative for rhonchi, wheezes or diminished lung sounds Cardio regular rate, regular rhythm, S1 normal heart sound, S2 normal heart sound and no murmurs Rate: tachycardic Peripheral Pulses: pulses 2+ throughout GI normal to inspection, nondistended, normoactive bowel sounds, soft to palpation, non-tender, non-distended and no masses Back/Spine no CVA tenderness and no thoracic nor lumbar tenderness Extremity normal to inspection General Extremety ED: Negative for edema General Extremity: Negative for edema Neuro oriented x3, CN's II-XII intact bilaterally, no sensory deficits noted and gait normal Sensorium / Orientation: awake, alert, oriented to person, oriented to place and oriented to time Motor Exam: strength 5/5 throughout and strength abnormal Psych mental status grossly normal Skin no rashes or lesions noted and no wounds MDM MDM MDM Narrative Medical decision making narrative: Patient presents with concern for elevated heart rate. He admits to using methamphetamines earlier today and smoking marijuana. Patient also feeling anxious. IV line established. EKG obtained arrival shows sinus tachycardia with ventricular rate of 145 bpm. CBC with differential obtained showed a white count of 18.1 with hemoglobin 14 and platelet count of 322. Chemistries unremarkable other than a depressed potassium of 2.3. His CO2 was 16. Anion gap elevated at 16. Glucose was elevated 164 however he states he was eating a bunch of cupcakes before all this happened. He has not been diagnosed with diabetes. Patient's troponin was normal at 17. Alcohol was less than 3. Toxicology screen pending. Patient was ordered p.o. potassium as well as IV potassium. Will discuss case with hospitalist to evaluate for admission for the hypokalemia. I did give him a milligram of Ativan and his heart rate improved into the low 110's. Lab Data Attestation: I reviewed the patient's lab results. Labs: Laboratory Results - last 24 hr 09/24/23 09/24/23 14:55 15:22 WBC 18.1 H RBC 4.81 Hgb 14.3 Hct 40.4 MCV 84.0 MCH 29.7 MCHC 35.4 RDW Std Deviation 38.0 RDW Coeff of Gonzalo 12.6 Plt Count 322 MPV 9.5 Immature Gran % (Auto) 0.500 Neut % (Auto) 73.6 H Lymph % (Auto) 19.4 [place] % (Auto) 6.0 Eos % (Auto) 0.2 Baso % (Auto) 0.3 Absolute Neuts (auto) 13.3 H Absolute Lymphs (auto) 3.50 Nucleated RBC % 0 Sodium 138 Potassium 2.3 L* Chloride 106 Carbon Dioxide 16.0 L Anion Gap 16 H BUN 10 Creatinine 1.11 Estim Creat Clear Calc 92.00 Est GFR (MDRD) Af Amer 96 Est GFR (MDRD) Non-Af 79 BUN/Creatinine Ratio 9.0 L Glucose 164 H Calcium 9.5 Troponin I High Sens 17 Urine Opiates Screen NEGATIVE Urine Methadone Screen NEGATIVE Ur Barbiturates Screen NEGATIVE Ur Phencyclidine Scrn NEGATIVE Ur Amphetamines Screen POSITIVE H MDMA (Ecstasy) Screen POSITIVE H U Benzodiazepines Scrn NEGATIVE Urine Cocaine Screen NEGATIVE U Cannabinoids Screen POSITIVE H Ur Drug Screen Comment Ethyl Alcohol < 3.0 EKG Initial EKG: Attestation: I personally reviewed and interpreted this EKG as follows: Comments: Sinus tachycardia with ventricular rate of 145 bpm Discharge Plan Dx/Rx/DC Orders Clinical Impression: Tachycardia, Acute hypokalemia, Illicit drug use, Anxiety Disposition Disposition: Acute Care Hospital [facility]
[2023-09-24 15:05] LABS: Absolute Neutrophil Count 13.3 X10^3/uL (2.0-7.7); Basophil# 0.05 X10^3/uL; Basophil% 0.3 % (0-1); Eosinophil# 0.04 X10^3/uL; Eosinophils% 0.2 % (0-5); Hematocrit 40.4 % (40-54); Hemoglobin 14.3 g/dL (13.0-16.5); Lymphocyte % 19.4 % (19-41); Mean Corp Hgb Conc 35.4 g/dL (32-36); Mean Corpuscular Hgb 29.7 pg (27.0-32.0); Mean Platelet Vol. 9.5 fl (6.2-12.0); Monocyte# 1.08 X10^3/uL; NRBC Flagged by Analyzer 0 % (0-5); Neutrophil # 13.29 X10^3/uL (2.7-7.7); Neutrophil % 73.6 % (47-70); Platelet Count 322 K/mm3 (150-450); RBC Distribution Width CV 12.6 % (11.6-14.6); Red Blood Count 4.81 M/mm3 (4.6-6.2); White Blood Count 18.1 K/mm3 (4.4-11.0)
[2023-09-24] MEDS: 0.9% Normal Saline (1000mL) 1,000 ML 1000 ML IV (15:06)
[2023-09-24] MEDS: LORazepam 2 MG/ML Syringe 1 MG IV ×2 (15:06→18:41)
[2023-09-24 15:20] LABS: Alcohol, Blood (Medical)-Serum < 3.0 mg/dL
[2023-09-24 15:32] LABS: Anion Gap 16 (5-15); BUN 10 mg/dL (7-18); Calcium,Total 9.5 mg/dL (8.5-10.1); Chloride 106 mmol/L (98-107); Creatinine, Serum 1.11 mg/dL (0.70-1.30); EST Glomerular Filtration Rate 79 mL/min (>60); Est Glom Filt Rate - Afr Amer 96 mL/min (>60); Glucose 164 mg/dL (74-106); Potassium 2.3 mmol/L (3.5-5.1); Sodium Level 138 mmol/L (136-145); Troponin-I HS 17 pg/mL (3.0-78.0)
--- NOTE | 2023-09-24 15:32 | ED.RN ---
Critical potassium of 2.3, Dr. Ybarra notified
[2023-09-24] MEDS: Potassium Chloride Oral Tablet 20 MEQ 40 MEQ PO (15:54)
[2023-09-24] MEDS: Potassium Chloride 10mEq/100mL 10 MEQ/100 ML IV.SOLN. 100 MEQ IV BOLUS ×4 (15:59→21:05)
[2023-09-24 16:05] LABS: Amphetamine Urine VISTA POSITIVE (<1000 ng/mL); Barbiturate Urine VISTA NEGATIVE (< 200 ng/mL); Benzodiazepine Urine VISTA NEGATIVE (< 200 ng/mL); Cocaine Urine VISTA NEGATIVE (< 300 ng/mL); Ecstacy Urine VISTA POSITIVE (< 500 ng/mL); Methadone Urine VISTA NEGATIVE (< 300 ng/mL); PCP Urine VISTA NEGATIVE (< 25 ng/mL); THC Urine VISTA POSITIVE (< 50 ng/mL); Vista UDS pH Range 5
--- NOTE | 2023-09-24 17:48 | HP.PCM.HOS_ITS ---
HPI - General General Date of Admission: 09/24/23 Date of Service: 09/24/23 Chief Complaint: Racing heart HPI Narrative KIAH ACEVES, is a 38 M with chronic marijuana use who presented to [facility] ED 09/24/2023 with racing heart, initially heart rate was over 200 and he was given adenosine and arrival to ED heart rate in 150s. He was found to have done methamphetamine and it was suspected that this was the cause. Additionally did have a white blood cell count of 18 and a potassium of 2.3. Patient given a milligram of Ativan and potassium and hospitalist contacted for admission given his heart rate was still 130s to 150s. Evaluated patient in ED and he reports he has not been sleeping well recently has been very stressed and it 330/4 AM he decided to use a moderate amount of meth which he smoked. He said he did not think that he felt anything from it but around 12 or 1:00 he started feeling his heart racing. Initially had a little bit of numbness and tingling in his fingers and a headache, does feel better now with heart rate improved from 200s but it is still mid 100s evaluation. He denies ever using meth before, reports he smokes marijuana daily and has since he was 18 years old but denies any other substance use and denies any IV drug abuse. Smokes 1 pack/day cigarettes, denies alcohol. Reports he had not eaten much today but did not note any specific recent decrease in p.o. intake. Does report that he has had some chronic diarrhea since his gallbladder came out but denies any change in this. [facility] Medical History (Updated 09/24/23 @ 15:[address] Wayne Ybarra DO) Substance abuse Home Medications ?Medication ?Instructions ?Recorded ?Last Taken ?Type NK 09/24/23 Unknown History Allergy/AdvReac Type Severity Reaction Status Date / Time oxycodone AdvReac I BECOME Verified 09/24/23 14:31 VIOLENT Surgical History H/O hernia repair History of cholecystectomy Social History Smoking Status: Current every day smoker tobacco type: cigarettes ROS ROS Narrative General: Denies fever/chills HENT: Did have a bit of a headache earlier, denies stuffy nose, denies sore throat EYES: Denies changes in vision Resp: Denies cough, denies shortness of breath Cardiac: Denies chest pain, beginning to feel better from a racing heart standpoint GI: Denies abdominal pain, denies changes in bowel, denies nausea/vomiting : Denies changes in urination Extremity: Denies swelling MSK: Denies weakness Neuro: Denies any numbness/tingling Heme: Denies any bleeding or bruising Skin: Denies rashes Psychiatric: No complaints voiced Vital Signs Vital Signs Vital Signs: 09/24/23 14:32 09/24/23 15:30 09/24/23 16:00 Temperature 98.1 F Temperature Source Temporal Pulse Rate 156 H 110 H 104 H Respiratory Rate 27 H 17 22 H Blood Pressure 117/93 H 146/85 H 144/92 H Blood Pressure Mean 101 101 109 Pulse Ox 93 99 99 Oxygen Delivery Method Nasal Cannula Oxygen Flow Rate (L/min) 2 09/24/23 16:00 09/24/23 16:20 09/24/23 16:45 Temperature 98.3 F Temperature Source Pulse Rate 104 H 124 H 143 H Respiratory Rate 22 H 20 H 22 H Blood Pressure 144/92 H 151/120 H 128/87 H Blood Pressure Mean 104 130 98 Pulse Ox 99 97 Oxygen Delivery Method Oxygen Flow Rate (L/min) 09/24/23 17:00 Temperature Temperature Source Pulse Rate 121 H Respiratory Rate 22 H Blood Pressure 113/73 Blood Pressure Mean 84 Pulse Ox Oxygen Delivery Method Oxygen Flow Rate (L/min) Weight Weight: 74.7 kg Body Mass Index (BMI) 24.3 Physical Exam Narrative General: Alert, oriented, no apparent distress HEENT: Atraumatic, normocephalic, poor dentition Eyes: Anicteric, normal conjunctiva, extraocular movements grossly intact Neck: Supple Respiratory: Clear to auscultation bilaterally, normal respiratory effort Cardiovascular: Tachycardic GI: Soft, nontender, nondistended Extremities: No edema Musculoskeletal: Moving all extremities Neuro: No overt focal neurological deficits Skin: No rashes appreciated Psych: Cooperative Results Lab / Micro Data 09/24/23 14:55 09/24/23 14:55 Labs: Laboratory Results - last 24 hr 09/24/23 14:55: WBC 18.1 H, RBC 4.81, Hgb 14.3, Hct 40.4, MCV 84.0, MCH 29.7, MCHC 35.4, RDW Std Deviation 38.0, RDW Coeff of Gonzalo 12.6, Plt Count 322, MPV 9.5, Immature Gran % (Auto) 0.500, Neut % (Auto) 73.6 H, Lymph % (Auto) 19.4, [place] % (Auto) 6.0, Eos % (Auto) 0.2, Baso % (Auto) 0.3, Absolute Neuts (auto) 13.3 H, Absolute Lymphs (auto) 3.50, Nucleated RBC % 0, Sodium 138, Potassium 2.3 L*, Chloride 106, Carbon Dioxide 16.0 L, Anion Gap 16 H, BUN 10, Creatinine 1.11, Estim Creat Clear Calc 92.00, Est GFR (MDRD) Af Amer 96, Est GFR (MDRD) Non-Af 79, BUN/Creatinine Ratio 9.0 L, Glucose 164 H, Calcium 9.5, Troponin I High Sens 17, Ethyl Alcohol < 3.0 09/24/23 15:22: Urine Opiates Screen NEGATIVE, Urine Methadone Screen NEGATIVE, Ur Barbiturates Screen NEGATIVE, Ur Phencyclidine Scrn NEGATIVE, Ur Amphetamines Screen POSITIVE H, MDMA (Ecstasy) Screen POSITIVE H, U Benzodiazepines Scrn NEGATIVE, Urine Cocaine Screen NEGATIVE, U Cannabinoids Screen POSITIVE H, Ur Drug Screen Comment Assessment & Plan Assessment/Plan (1) Tachycardia: (2) Acute hypokalemia: (3) Anxiety: (4) Illicit drug use: PLAN: Plan #Methamphetamine induced tachycardia -Admit to telemetry -Will give another dose of Ativan -Replace underlying electrolyte abnormalities -IVF -Supportive care #Hypokalemia -Potassium 2.3 -Being replaced with p.o. and IV potassium -Possibly secondary to some chronic diarrhea, will need to explore further once patient medically stable -Will check mag -Will check repeat BMP -Does report some chronic diarrhea, may need further evaluation once patient stable can likely be worked up on an outpatient basis given chronicity #HAGMA -Bicarb 16 with an anion gap of 16 -Suspect patient probably hypoperfused given his extreme tachycardia -IVF -Treat underlying tachycardia -Repeat BMP #Leukocytosis -White blood cell count 18 -Suspect that this is reactive -No evidence of any infectious etiology #Polysubstance use -advise cessation #Tobacco use -Advise cessation #DVT ppx: Low risk, ambulatory Michelle Costa MD Time spent in the patient's overall evaluation,decision-making process, review of diagnostic data, adjustment of management, discussion with other providers, nursing nursing and ancillary staff involved in patient's care documentation, 55 minutes Charges/Coding Visit Charges Inpatient E&M: 38264 Init Hosp L2
[2023-09-24] MEDS: 0.9% Normal Saline (1000mL) 1,000 ML 100 ML IV (18:22)
[2023-09-24] MEDS: 0.9% Saline Lock 10 ML Syringe IV (18:41)
[2023-09-24 20:47] LABS: Anion Gap 4 (5-15); BUN 7 mg/dL (7-18); BUN/Creat Ratio 8.9 RATIO (10-20); Calcium,Total 8.3 mg/dL (8.5-10.1); Chloride 111 mmol/L (98-107); Creatinine, Serum 0.79 mg/dL (0.70-1.30); EST Glomerular Filtration Rate 118 mL/min (>60); Est Glom Filt Rate - Afr Amer 142 mL/min (>60); Estimated Creatinine Clearance 129.27 ml/min; Glucose 112 mg/dL (74-106); Magnesium 1.8 mg/dL (1.6-2.6); Potassium 4.1 mmol/L (3.5-5.1); Sodium Level 140 mmol/L (136-145)
[2023-09-25 03:24] VITALS: PULSE 88
[2023-09-25 04:00] VITALS: BP 126/91; PULSE 87; RESP 18; TEMP 36.6; O2SAT 99
[2023-09-25] MEDS: 0.9% Normal Saline (1000mL) 1,000 ML 100 ML IV (04:23)
[2023-09-25 06:45] LABS: Absolute Lymphocyte Count 2.49 X10^3/uL (0.83-4.51); Absolute Neutrophil Count 3.8 X10^3/uL (2.0-7.7); Basophil# 0.03 X10^3/uL; Basophil% 0.4 % (0-1); Eosinophil# 0.05 X10^3/uL; Eosinophils% 0.7 % (0-5); Hematocrit 39.3 % (40-54); Hemoglobin 13.2 g/dL (13.0-16.5); Lymphocyte # 2.49 X10^3/ul (0.83-4.51); Lymphocyte % 36.7 % (19-41); Mean Corp Hgb Conc 33.6 g/dL (32-36); Mean Corpuscular Hgb 29.9 pg (27.0-32.0); Mean Corpuscular Volume 88.9 fL (80-94); Mean Platelet Vol. 10.2 fl (6.2-12.0); Monocyte% 5.9 % (0-10); NRBC Flagged by Analyzer 0 % (0-5); Neutrophil % 56.2 % (47-70); Platelet Count 260 K/mm3 (150-450); RBC Distribution Width SD 42.1 fl (35.1-43.9); Red Blood Count 4.42 M/mm3 (4.6-6.2); White Blood Count 6.8 K/mm3 (4.4-11.0)
[2023-09-25 07:28] LABS: ALB/GLOB Ratio 1.1 RATIO (0.9-2.4); AST(SGOT) 13 U/L (15-37); Alanine Aminotransfer ALT/SGPT 10 U/L (16-61); Albumin, Serum 3.5 g/dL (3.2-5.0); Alkaline Phosphatase 98 U/L (45-117); Anion Gap 4 (5-15); BUN 6 mg/dL (7-18); BUN/Creat Ratio 7.9 RATIO (10-20); Calcium,Total 8.8 mg/dL (8.5-10.1); Chloride 112 mmol/L (98-107); Creatinine, Serum 0.76 mg/dL (0.70-1.30); EST Glomerular Filtration Rate 122 mL/min (>60); Est Glom Filt Rate - Afr Amer 148 mL/min (>60); Estimated Creatinine Clearance 134.37 ml/min; Globulin 3.1 g/dL (2.2-4.2); Glucose 96 mg/dL (74-106); Protein, Total 6.6 g/dL (6.4-8.2); Sodium Level 141 mmol/L (136-145)
--- NOTE | 2023-09-25 08:20 | PCM.DC.SUM ---
Providers Date of Admission: 09/24/23 Primary Care Physician: Dr. Ugo Sim, DO Reason For Visit: METH INDUCED TACHYCARDIA Diagnosis Discharge Diagnosis (1) Tachycardia: Status: Acute Code(s): R00.0 - Tachycardia, unspecified (2) Acute hypokalemia: Status: Acute Code(s): E87.6 - Hypokalemia (3) Anxiety: Status: Acute Code(s): F41.9 - Anxiety disorder, unspecified (4) Illicit drug use: Status: Acute Code(s): F19.90 - Other psychoactive substance use, unspecified, uncomplicated Medications at Discharge Home Medications NK 09/24/23 Hospital Course Summary of Care Provided Hospital Course: Patient is a 38-year-old gentleman admitted with palpitations after ingestion of methamphetamine and marijuana. He was found to be in SVT by the squad did receive adenosine and brought to the emergency department 1.Methamphetamine induced tachycardia -Patient was admitted to a monitored bed for supportive care did receive Ativan in addition to IV fluid 2. Hypokalemia -Corrected per protocol 3. Leukocytosis ? Reactive resolved 4. Polysubstance dependence ? Cessation encouraged 5. Tobacco dependence - Counseled on cessation, offered nicotine patch for tobacco cravings 6. DVT prophylaxis ? Low risk did encourage ambulation Time spent in the patient's overall evaluation,decision-making process, review of diagnostic data, adjustment of management, discussion with other providers, nursing nursing and ancillary staff involved in patient's care documentation, 35 minutes Physical Exam Narrative GENERAL: cooperative HEENT: Atraumatic; normocephalic EYES; Anicteric, Normal Conjunctiva NECK; supple, normal thyroid, RESPIRATORY: Diminished to auscultation CARDIOVASCULAR: Regular S1 S2, GI: soft, normoactive bowel sounds, : No Renal angle tenderness; EXTREMITIES: No edema, no clubbing, MUSCULOSKELETAL: no muscle wasting NEURO: Awake; no lateralizing signs. SKIN: No Rash PSYCH; Flat affect Weight / BMI Weight Weight: 71.214 kg Body Mass Index (BMI) 23.1 ABG / Lab / Microbiology Data 09/25/23 05:30 09/25/23 05:30 Laboratory: Laboratory Results - last 24 hr 09/24/23 14:55: WBC 18.1 H, RBC 4.81, Hgb 14.3, Hct 40.4, MCV 84.0, MCH 29.7, MCHC 35.4, RDW Std Deviation 38.0, RDW Coeff of Gonzalo 12.6, Plt Count 322, MPV 9.5, Immature Gran % (Auto) 0.500, Neut % (Auto) 73.6 H, Lymph % (Auto) 19.4, [place] % (Auto) 6.0, Eos % (Auto) 0.2, Baso % (Auto) 0.3, Absolute Neuts (auto) 13.3 H, Absolute Lymphs (auto) 3.50, Nucleated RBC % 0, Sodium 138, Potassium 2.3 L*, Chloride 106, Carbon Dioxide 16.0 L, Anion Gap 16 H, BUN 10, Creatinine 1.11, Estim Creat Clear Calc 92.00, Est GFR (MDRD) Af Amer 96, Est GFR (MDRD) Non-Af 79, BUN/Creatinine Ratio 9.0 L, Glucose 164 H, Calcium 9.5, Troponin I High Sens 17, Ethyl Alcohol < 3.0 09/24/23 15:22: Urine Opiates Screen NEGATIVE, Urine Methadone Screen NEGATIVE, Ur Barbiturates Screen NEGATIVE, Ur Phencyclidine Scrn NEGATIVE, Ur Amphetamines Screen POSITIVE H, MDMA (Ecstasy) Screen POSITIVE H, U Benzodiazepines Scrn NEGATIVE, Urine Cocaine Screen NEGATIVE, U Cannabinoids Screen POSITIVE H, Ur Drug Screen Comment 09/24/23 20:28: Sodium 140, Potassium 4.1, Chloride 111 H, Carbon Dioxide 25.0, Anion Gap 4 L, BUN 7, Creatinine 0.79, Estim Creat Clear Calc 129.27, Est GFR (MDRD) Af Amer 142, Est GFR (MDRD) Non-Af 118, BUN/Creatinine Ratio 8.9 L, Glucose 112 H, Calcium 8.3 L, Magnesium 1.8 09/25/23 05:30: WBC 6.8, RBC 4.42 L, Hgb 13.2, Hct 39.3 L, MCV 88.9 D, MCH 29.9, MCHC 33.6 D, RDW Std Deviation 42.1, RDW Coeff of Gonzalo 13.0, Plt Count 260, MPV 10.2, Immature Gran % (Auto) 0.100, Neut % (Auto) 56.2, Lymph % (Auto) 36.7, [place] % (Auto) 5.9, Eos % (Auto) 0.7, Baso % (Auto) 0.4, Absolute Neuts (auto) 3.8, Absolute Lymphs (auto) 2.49, Nucleated RBC % 0, Sodium 141, Potassium 4.0, Chloride 112 H, Carbon Dioxide 25.0, Anion Gap 4 L, BUN 6 L, Creatinine 0.76, Estim Creat Clear Calc 134.37, Est GFR (MDRD) Af Amer 148, Est GFR (MDRD) Non-Af 122, BUN/Creatinine Ratio 7.9 L, Glucose 96, Calcium 8.8, Total Bilirubin 0.90, AST 13 L, ALT 10 L, Alkaline Phosphatase 98, Total Protein 6.6, Albumin 3.5, Globulin 3.1, Albumin/Globulin Ratio 1.1 D/C Instructions Discharge Diet: No restrictions Discharge Activity: Return to Normal Activity Call your doctor if you observe: Fever of 101 or Higher, Shortness of breath, Fainting spells and Chest pain Meaningful Use Info Meaningful Use Meaningful Use Diagnoses (Choose all that apply): None applicable Ischemic Stroke Statin Dosing Therapy Reference: STATIN DOSE THERAPY REFERENCE: * Patients > 75 years receive moderate or high dose statin therapy. * Patients 75 years or YOUNGER should receive HIGH intensity statin dose unless contraindicated. You will be required to document reason for non-treatment if statin daily dose does not meet guidelines. HIGH DOSE STATIN THERAPY DAILY Atorvastatin > than or = to 40 mg Rosuvastatin > than or = to 20 mg Amlodipine + Atorvastatin > than or = to 2.5/40 mg Ezetimibe + Simvastatin 10/80 mg Simvastatin 80mg Discharge Plan Admission Admit Date/Time: 09/24/23 17:48 Attending Provider: Flakito Conrad Primary Care Provider: Ugo Sim Consulting Providers: Michelle Costa Discharge Orders/Prescriptions Prescriptions: No Action NK Referrals / Follow Up: Ugo Sim DO [Primary Care Provider] - Within 2 Weeks Disposition Disposition (needs filled in before D/C Order can be placed): Home, Self Care Charges/Coding Visit Charges Inpatient E&M: 22080 Disch Hosp >30min
--- NOTE | 2023-09-25 09:29 | CASEMGMT ---
Social Work- SW met with pt due to self pay status. Pt was up, standing in room, observed to have tense body posture. SW introduced self and reason for visit. Pt began to engage in conversation and was observed to quickly relax body language. Pt reports that he has been 'fighting' with [employer] for medicaid coverage d/t variable income. SW provided resources for [facility], prescription assistance, [employer] card, [employer], and [employer]. Pt shared the reasoning behind his hospitalization and spoke openly about his huge mistake in trying meth. Pt reports that his family has several people who have dealt with addiction, so pt never thought of using hard drugs and does not drink because he know what happens. Pt reports that he has an appointment at [facility] this Sunday to begin counseling, as pt reports he has been having relationship difficulties with fiance and wants to get his life back in order. Pt was appreciative of resources and time spent listening. Pt indicates no other needs at this time. AIMEE Casas
== END 2023-09-25 08:25 | disposition home or self-care (01) ==
LOC: ED 16:03 → PCU 17:58
PROVIDERS: Admitting Provider Internal Medicine; Emergency Provider Emergency Medicine; PCP Student in an Organized Health Care Education/Training Program; Visit Provider Internal Medicine
DX: F15.988 Other stimulant use, unspecified with other stimulant-induced disorder (principal); E87.6 Hypokalemia; F12.10 Cannabis abuse, uncomplicated; F41.9 Anxiety disorder, unspecified; R73.9 Hyperglycemia, unspecified; F17.210 Nicotine dependence, cigarettes, uncomplicated; I47.19 Other supraventricular tachycardia; R20.0 Anesthesia of skin; R20.2 Paresthesia of skin
CPT/HCPCS: 36415; 80048; 80053; 80307; 82077; 83735; 84484; 85025; 93005; 96361; 96365; 96366; 96375; 96376; 99221; 99285; J7030; J7050; A4216; G0378

== ENCOUNTER 2023-12-28 11:00 | Emergency (ER) | payer MEDICAID, SELFPAY ==
[2023-12-28 11:00] VITALS: BP 127/87; PULSE 148; RESP 14; TEMP 36.9; O2SAT 100; BMI 22.6
--- NOTE | 2023-12-28 11:12 | RAD_ITS ---
STUDY: X-RAY CHEST REASON FOR EXAM: Male, 38 years old. Palpitations TECHNIQUE: Single AP portable view of the chest. COMPARISON: Comparison is made with prior study of March 25, 2023. FINDINGS: EKG electrodes are seen. The lungs are clear and expanded. There is no demonstrated pleural abnormality. Normal size heart. Normal mediastinum and christa. Normal visualized pulmonary arteries. Normal visualized aortic arch and descending thoracic aorta. Normal visualized thoracic spine. Normal visualized ribs, clavicles, and shoulders. There is no demonstrated abnormality of the visualized soft tissue structures of the upper abdomen. RAD/Chest 1 View (Portable) IMPRESSION: Normal x-ray examination of the chest. Electronically Signed: Prashanth Pat MD at 12:31 EDT ,
--- NOTE | 2023-12-28 11:12 | EKG12_ITS ---
Test Reason : SVT Blood Pressure : / mmHG Vent. Rate : 157 BPM Atrial Rate : 157 BPM P-R Int : 126 ms QRS Dur : 090 ms QT Int : 268 ms P-R-T Axes : 073 073 062 degrees QTc Int : 433 ms Critical Test Result: High HR Sinus tachycardia Otherwise normal ECG Confirmed by BERRY DUENAS, PORTER ([id number]), field map editor DIONTE NOBLE ([id number]) on 01/01/2024 9:57:45 AM Referred By: CHIOMA/JOSH Confirmed By:PORTER SMART MD
--- NOTE | 2023-12-28 11:20 | ED.VIS.CHEST ---
HPI History of Present Illness Chief Complaint: Palpitations Informant: patient and EMS Narrative Narrative: 38-year-old male presenting to the emergency room via EMS with a chief complaint of palpitations. Patient states that he was having difficulty with his daughter this morning and then placed were in and out of his house. He states he has a history of anxiety and is on medications for it. He tried smoking some cannabis this morning which he states did not help my cause. He also notes that he has used methamphetamines in the past 48 hours including last night around midnight. He notes he is having loss of sensation in his right arm when the blood pressure prop cuff goes off. States he is getting some tightness in the left upper chest. Feels extremely anxious. He states that it is not uncommon for him to have high heart rate when his panic attacks sudden. He states he feels like he is going to pass out. EMS notes a heart rate of 180 that did not change with 6 mg of adenosine PFSH PFSH Medical History Substance abuse Home Medications ?Medication ?Instructions ?Recorded ?Last Taken ?Type NK 09/24/23 Unknown History Allergy/AdvReac Type Severity Reaction Status Date / Time oxycodone AdvReac I BECOME Verified 12/28/23 11:01 VIOLENT Surgical History H/O hernia repair History of cholecystectomy Social History Smoking Status: Current every day smoker tobacco type: cigarettes ROS ROS ED Constitutional Constitutional ED: Denies chills, fever(s) or weight loss Eyes Eyes: Denies change in vision or diplopia ENT ENT ED: Denies ear pain, rhinorrhea or sore throat Cardiovascular Cardiovascular: Reports chest pain, palpitations and racing heartbeat; Denies orthopnea Respiratory/Chest Respiratory/Chest: Reports dyspnea; Denies cough or orthopnea Gastrointestinal Gastrointestinal: Reports nausea; Denies abdominal pain, diarrhea or vomiting Genitourinary Genitourinary ED: Denies dysuria, hematuria or urinary frequency Musculoskeletal Musculoskeletal: Reports other Details: Muscle spasms ; Denies arthralgias or myalgias Integumentary Denies abscess or rash Neurologic Neurologic: Reports paresthesias; Denies headache(s) or weakness Psychiatric Psychiatric: Reports anxiety; Denies depression, suicidal ideation or suicidal thoughts Endocrine Endocrinology: Denies polydipsia, polyphagia or polyuria Allergic/Immunologic Allergic/Immunologic ED: Denies mouth swelling, tongue swelling or urticaria EXAM Physical Exam Const Vital Signs: 12/28/23 11:00 12/28/23 11:00 12/28/23 12:00 Temperature 98.4 F Temperature Source Oral Pulse Rate 148 H 115 H Respiratory Rate 14 9 L Respiratory Effort Normal Non-Labored Blood Pressure 127/87 H 116/88 H Blood Pressure Mean 100 97 Pulse Ox 100 100 Oxygen Delivery Method Room Air Room Air 12/28/23 13:00 12/28/23 14:00 12/28/23 14:44 Temperature 96.8 F L Temperature Source Pulse Rate 106 H 95 111 H Respiratory Rate 17 14 16 Respiratory Effort Blood Pressure 114/88 H 116/93 H 115/88 H Blood Pressure Mean 96 100 97 Pulse Ox 98 97 99 Oxygen Delivery Method Room Air Room Air Positive well nourished and well developed General Appearance ED: well developed HEENT Reports normocephalic, head/scalp atraumatic and moist mucous membranes Eyes PERRL and EOMs intact bilaterally Neck no lymphadenopathy, supple and no JVD Resp normal respiratory effort and clear to auscultation bilaterally Cardio regular rate, regular rhythm and no murmurs Rate: tachycardic GI normal to inspection, nondistended, normoactive bowel sounds and non-tender Palpation: soft Back/Spine no CVA tenderness and normal ROM Extremity normal to inspection General Extremety ED: Negative for edema General Extremity: Negative for edema Neuro oriented x3 and CN's II-XII intact bilaterally Sensorium / Orientation: alert Motor Exam: strength 5/5 throughout Psych Mood & Affect: anxious; Negative for depressed or tearful Skin no rashes or lesions noted and no wounds MDM MDM MDM Narrative Medical decision making narrative: Differential diagnosis includes cardiac dysrhythmia toxidrome electrolyte abnormalities anxiety/panic attack EKG shows sinus tachycardia at a ventricular rate of 157 bpm. Toxicology is positive for amphetamines MDMA and cannabinoids urinalysis with no overt infection or dehydration troponin is 6 magnesium 1.6 glucose 141 BUN of 15 creatinine 1.17 hemoglobin 14.3 platelet count 398. My independent interpretation of the single view chest x-ray is no acute process. Patient received oral Vistaril. His heart rate continued to decline now into the 90s. I think the patient can be discharged home and this was most likely an anxiety reaction complicated by coingestions today. He sees primary care for his anxiety and I talked with them about possibly seeing psychiatry and I can give him a referral if they choose to do that. History & Record Review Discussion w/independent historian: Patient and Family Lab Data Attestation: I reviewed the patient's lab results. Labs: Laboratory Results - last 24 hr 12/28/23 12/28/23 11:20 12:38 WBC 8.3 RBC 4.92 Hgb 14.3 Hct 41.7 MCV 84.8 MCH 29.1 MCHC 34.3 RDW Std Deviation 38.5 RDW Coeff of Gonzalo 12.6 Plt Count 398 MPV 9.0 Immature Gran % (Auto) 0.200 Neut % (Auto) 56.5 Lymph % (Auto) 35.3 Mccreary % (Auto) 6.7 Eos % (Auto) 0.8 Baso % (Auto) 0.5 Absolute Neuts (auto) 4.7 Absolute Lymphs (auto) 2.91 Nucleated RBC % 0 Sodium 138 Potassium 3.4 L Chloride 107 Carbon Dioxide 21.0 Anion Gap 11 BUN 15 Creatinine 1.17 Estim Creat Clear Calc 84.44 Est GFR (MDRD) Af Amer 90 Est GFR (MDRD) Non-Af 75 BUN/Creatinine Ratio 12.8 Glucose 141 H Calcium 9.6 Magnesium 1.6 Troponin I High Sens 6 Urine Color Yellow Urine Clarity Clear Urine pH 6.0 Ur Specific [place] 1.015 Urine Protein Negative Urine Glucose (UA) Normal Urine Ketones Negative Urine Occult Blood Negative Urine Nitrite Negative Urine Bilirubin Negative Urine Urobilinogen Normal Ur Leukocyte Esterase Negative Urine RBC 0 SEEN Urine WBC 0 SEEN Ur Squamous Epith Cells 0 SEEN Urine Bacteria 0 SEEN Urine Mucus 0 SEEN Urine Opiates Screen NEGATIVE Urine Methadone Screen NEGATIVE Ur Barbiturates Screen NEGATIVE Ur Phencyclidine Scrn NEGATIVE Ur Amphetamines Screen POSITIVE H MDMA (Ecstasy) Screen POSITIVE H U Benzodiazepines Scrn NEGATIVE Urine Cocaine Screen NEGATIVE U Cannabinoids Screen POSITIVE H Ur Drug Screen Comment Radiography Diagnostic Testing: Clinical Impression(s) from Imaging Studies Chest X-Ray 12/28/23 11:12 IMPRESSION: Normal x-ray examination of the chest. Electronically Signed: Prashanth Pat MD at 12:31 EDT , EKG Initial EKG: Attestation: I personally reviewed and interpreted this EKG as follows: Comments: Sinus tachycardia ventricular rate of 157 bpm Discharge Plan Triage Chief Complaint: Palpitations Other Complaint: Anxiety ED Provider: Danny Jolley Dx/Rx/DC Orders Clinical Impression: Anxiety, Sinus tachycardia, Palpitations Instructions: ED Anxiety Reaction Prescriptions: No Action NK Primary Care Provider: Ugo Sim Referrals: Ugo Sim DO [Primary Care Provider] - As soon as possible Ryder Yancey DO [Med Staff - [employer]] - As Needed (for psychiatry) Print Language: Hebrew Disposition Disposition: Home, Self Care Discharge Date/Time: 12/28/23 14:45
[2023-12-28 11:44] LABS: Absolute Lymphocyte Count 2.91 X10^3/uL (0.83-4.51); Absolute Neutrophil Count 4.7 X10^3/uL (2.0-7.7); Basophil# 0.04 X10^3/uL; Basophil% 0.5 % (0-1); Eosinophil# 0.07 X10^3/uL; Eosinophils% 0.8 % (0-5); Hematocrit 41.7 % (40-54); Hemoglobin 14.3 g/dL (13.0-16.5); Lymphocyte # 2.91 X10^3/ul (0.83-4.51); Lymphocyte % 35.3 % (19-41); Mean Corp Hgb Conc 34.3 g/dL (32-36); Mean Corpuscular Hgb 29.1 pg (27.0-32.0); Mean Corpuscular Volume 84.8 fL (80-94); Monocyte# 0.55 X10^3/uL; Monocyte% 6.7 % (0-10); NRBC Flagged by Analyzer 0 % (0-5); Neutrophil # 4.66 X10^3/uL (2.7-7.7); Neutrophil % 56.5 % (47-70); Platelet Count 398 K/mm3 (150-450); RBC Distribution Width CV 12.6 % (11.6-14.6); RBC Distribution Width SD 38.5 fl (35.1-43.9); Red Blood Count 4.92 M/mm3 (4.6-6.2); White Blood Count 8.3 K/mm3 (4.4-11.0)
[2023-12-28 11:49] LABS: Anion Gap 11 (5-15); BUN 15 mg/dL (7-18); BUN/Creat Ratio 12.8 RATIO (10-20); Calcium,Total 9.6 mg/dL (8.5-10.1); Chloride 107 mmol/L (98-107); Creatinine, Serum 1.17 mg/dL (0.70-1.30); EST Glomerular Filtration Rate 75 mL/min (>60); Est Glom Filt Rate - Afr Amer 90 mL/min (>60); Estimated Creatinine Clearance 84.44 ml/min; Glucose 141 mg/dL (74-106); Magnesium 1.6 mg/dL (1.6-2.6); Potassium 3.4 mmol/L (3.5-5.1); Sodium Level 138 mmol/L (136-145); Troponin-I HS 6 pg/mL (3.0-78.0)
[2023-12-28] MEDS: hydrOXYzine PAM 25 MG Capsule 50 MG PO (11:58)
[2023-12-28 12:00] VITALS: BP 116/88; PULSE 115; RESP 9; O2SAT 100
[2023-12-28 12:46] LABS: Bacteria 0 SEEN /hpf (None Seen); Mucous, Urine 0 SEEN /hpf (<or=2+); Red Blood Cells-Urine 0 SEEN /hpf (0-5); Squamous Epithelial Cells - UA 0 SEEN /hpf (0-5); White Blood Cells 0 SEEN /hpf (0-5)
[2023-12-28 12:54] LABS: Color, Urine Yellow (Yellow); Glucose, Dipstick Normal (Normal); Ketone-Dipstick Negative (Negative); Leukocyte Esterase-Dipstick Negative /ul (Negative); Nitrite-Dipstick Negative (Negative); Occult Blood-Urine Negative /ul (Negative); Protein-Dipstick Negative (Negative); Specific Gravity, Urine 1.015 (1.002-1.030); Urine Bilirubin Dipstick Negative (Negative); Urine Clarity Clear (Clear); Urine Urobilinogen Normal (Normal)
[2023-12-28 13:00] VITALS: BP 114/88; PULSE 106; RESP 17; O2SAT 98
[2023-12-28 13:44] LABS: Amphetamine Urine VISTA POSITIVE (<1000 ng/mL); Barbiturate Urine VISTA NEGATIVE (< 200 ng/mL); Benzodiazepine Urine VISTA NEGATIVE (< 200 ng/mL); Cocaine Urine VISTA NEGATIVE (< 300 ng/mL); Ecstacy Urine VISTA POSITIVE (< 500 ng/mL); Methadone Urine VISTA NEGATIVE (< 300 ng/mL); PCP Urine VISTA NEGATIVE (< 25 ng/mL); THC Urine VISTA POSITIVE (< 50 ng/mL); Vista UDS pH Range 5
[2023-12-28 14:00] VITALS: BP 116/93; PULSE 95; RESP 14; O2SAT 97
[2023-12-28 14:44] VITALS: BP 115/88; PULSE 111; RESP 16; TEMP 36; O2SAT 99
== END 2023-12-28 14:45 | disposition home or self-care (01) ==
PROVIDERS: Emergency Provider Emergency Medicine; PCP Student in an Organized Health Care Education/Training Program; Visit Provider Emergency Medicine
DX: F41.9 Anxiety disorder, unspecified (principal); F15.10 Other stimulant abuse, uncomplicated; R00.0 Tachycardia, unspecified; R00.2 Palpitations; F12.10 Cannabis abuse, uncomplicated; F17.210 Nicotine dependence, cigarettes, uncomplicated; Z79.899 Other long term (current) drug therapy
CPT/HCPCS: 71045; 80048; 80307; 81001; 83735; 84484; 85025; 93005; 99285